=== PATIENT | male | born 1960 | race Caucasian/White ===

== ENCOUNTER 2024-05-14 12:02 | Inpatient (IN) ==
--- NOTE | 2024-05-14 12:11 | Emergency Department Note ---
Impression & Plan Chest pain, Abdominal pain, Non-ST elevation OR (NSTEMI), Fever, Hypomagnesemia, Elevated brain natriuretic peptide (BNP) level ED Provider Note HISTORY OF PRESENT ILLNESS: Patient is a 63-year-old male presenting with chest pain, shortness of breath and abdominal pain. Patient reports his chest pain started 3 to 4 days ago. He describes it as "a pressure-like sensation in my chest." He states the pain seemed to come and go throughout the last few days, but today it was significantly worse. He reports feeling short of breath and lightheaded today. He has had a headache at the base of his skull for the last few days. Denies any measured fevers at home, but was febrile with EMS and route and given 1000 mg of Tylenol. Patient is complaining of excruciating abdominal pain earlier today and given 50 mcg of IV fentanyl prehospital per medical command orders. Patient denies any DVT or PE history. Denies any history of cardiac stents. He is not on any anticoagulation or antiplatelet therapies. He is complaining of generalized abdominal pain. Denies any dysuria or hematuria. Denies any numbness or tingling or weakness in extremities. He denies any back pain. ROS: as above PHYSICAL EXAM: Constitutional: Patient appears in no acute distress. HENT: Head: Normocephalic and atraumatic. Eyes: EOMI, PERRL Mouth/Throat: Mucous membranes moist. Neck: Trachea midline. Neck supple. Cardiovascular: Tachycardic with regular rhythm. No murmurs, rubs or gallops. Intact distal pulses. Pulmonary/Chest: No respiratory distress. Breath sounds clear and equal bilaterally. No wheezes or rales. Abdominal: Abdomen soft, no tenderness, rebound or guarding. Diffuse tenderness to palpation Musculoskeletal: No edema, tenderness or deformity noted. Skin: Warm and dry. No rash, erythema, pallor or cyanosis Psychiatric: Appropriate mood and affect for situation. Neurological: Alert and keenly responsive. CN II-XII grossly intact, moving all extremities equally and fully. MDM: - Vitals signs showed hypertension and tachycardia. - History obtained via patient. History as above. - Chronic conditions affecting care: HTN; HLD; DM-2 - Differential diagnoses include, but are not limited to: Acute coronary syndrome; pulmonary embolism; dissection; tension pneumothorax; esophageal rupture; pneumonia - Order placed for continuous cardiac monitoring. At this time, monitor showed rate of 111 bpm with normal sinus rhythm, per my interpretation. - External medical records reviewed. - EKG interpreted by myself showed normal sinus rhythm. Rate tachycardic at 114 bpm. QT 368. No acute ischemic changes. Noted to have PVCs. - Laboratory workup interpreted by myself showed normal WBC; normal PT/INR; stable electrolytes; elevated lactic acid (2.1); elevated troponin (62.6); elevated BNP (317); normal lipase; normal procalcitonin - Viral respiratory panel negative - CTA chest negative for dissection. Noted to have small right pleural effusion and moderate to extensive coronary artery calcifications. Noted to have cirrhotic liver. - CTA abdomen/pelvis negative for dissection. Noted with 3 cm abdominal aortic aneurysm. Normal appendix - CXR negative for pneumonia, per my interpretation. - Discussion was had with pillowcase maker about patient's case and need for admission - Hospitalist consulted for admission - Patient admitted to [facility] service for further evaluation and management. ASSESSMENT AND PLAN: Diagnosis: chest pain; NSTEMI; abdominal pain; fever; hypomagnesemia; elevated BNP Plan: admit Past Med/Surg History Problem List (Updated 05/14/24 @ 14:40 by Bridgett Cotto PA-C) Psoriatic arthritis Diabetes mellitus, type II Anemia Alcoholic cirrhosis of liver Elevated troponin Elevated brain natriuretic peptide (BNP) level (Acute) Hypomagnesemia (Acute) Fever (Acute) Non-ST elevation OR (NSTEMI) (Acute) Abdominal pain (Acute) Chest pain (Acute) HTN (hypertension) (Chronic) RLS (restless legs syndrome) (Chronic) Diabetes (Chronic) Tachycardia (Chronic) Chronic pain (Chronic) H/O cervical spine surgery (Chronic) Weakness (Acute) Social History Smoking Status: Former smoker Feels Safe at Home: Yes Allergies Allergies Allergy/AdvReac Type Severity Reaction Status Date / Time No Known Allergies Allergy Unverified 05/14/24 13:38 Home Meds Home Medications Medication Instructions Recorded Confirmed aspirin 81 mg tablet,delayed 81 mg PO DAILY 05/14/24 05/14/24 release clonazepam 0.5 mg tablet 0.5 mg PO HS PRN Sleep 05/14/24 05/14/24 insulin degludec 200 unit/mL (3 30 unit subcut QAM 05/14/24 05/14/24 mL) subcutaneous pen (Tresiba FlexTouch U-200 insulin) lisinopril 40 mg tablet 40 mg PO DAILY 05/14/24 05/14/24 melatonin 5 mg tablet 5 mg PO HS PRN Sleep 05/14/24 05/14/24 metformin 1,000 mg tablet 1,000 mg PO BID 05/14/24 05/14/24 nortriptyline 50 mg capsule 150 mg PO HS 05/14/24 05/14/24 ropinirole 4 mg tablet 4 mg PO TID 05/14/24 05/14/24 sildenafil 100 mg tablet 100 mg PO DAILY PRN Sexual 05/14/24 05/14/24 [place] Results & Data (ED) Vital Signs Vital Signs - 24 hr 05/14/24 11:53 05/14/24 12:10 05/14/24 12:20 Temperature 37.1 C Temperature Source Oral Pulse Rate 112 H 111 H Pulse Rate from SpO2 Sensor Respiratory Rate 19 Respiratory Effort / Characteristics Non-Labored Spontaneous Respiratory Depth Normal Blood Pressure 118/92 Blood Pressure Mean 100 Pulse Oximetry 97 99 Oxygen Delivery Method Room Air Oxygen Flow Rate 4 Sepsis Recent Fever Within 48 Hours Yes Sepsis New/Unexplained Change in Mental Status No Sepsis Action Taken by Nursing No Action Required 05/14/24 12:45 05/14/24 12:46 05/14/24 13:03 Temperature Temperature Source Pulse Rate 108 H 111 H 110 H Pulse Rate from SpO2 Sensor 108 H 108 H Respiratory Rate 20 22 Respiratory Effort / Characteristics Respiratory Depth Blood Pressure 129/102 H 137/104 H Blood Pressure Mean 111 115 Pulse Oximetry 99 98 Oxygen Delivery Method Oxygen Flow Rate Sepsis Recent Fever Within 48 Hours Sepsis New/Unexplained Change in Mental Status Sepsis Action Taken by Nursing 05/14/24 14:39 Temperature Temperature Source Pulse Rate 108 H Pulse Rate from SpO2 Sensor 106 H Respiratory Rate Respiratory Effort / Characteristics Respiratory Depth Blood Pressure Blood Pressure Mean Pulse Oximetry 95 Oxygen Delivery Method Oxygen Flow Rate Sepsis Recent Fever Within 48 Hours Sepsis New/Unexplained Change in Mental Status Sepsis Action Taken by Nursing Laboratory Data 05/14/24 12:12 05/14/24 12:12 Lab Results 05/14/24 05/14/24 05/14/24 Range/Units 12:12 12:19 12:33 WBC 6.88 (4.8-10.8) K/ul RBC 3.79 L (4.70-6.10) M/uL Hgb 11.8 L (14.0-18.0) g/dl POC Hgb 12.9 L (14.0-18.0) g/dl Hct 37.2 L (42.0-52.0) % POC Hct 38 L (42-52) % MCV 98.2 (80.0-100.0) fL MCH 31.1 (25.0-34.0) pg MCHC 31.7 L (32.0-36.0) g/dL RDW Std Deviation 57.5 H (36.4-46.3) fL RDW Coeff of Doni 15.9 H (11.5-14.5) % Plt Count 191 (130-400) K/uL MPV 9.3 L (9.4-12.4) fL Immature Gran % (Auto) 0.9 % Neut % (Auto) 70.9 % Lymph % (Auto) 15.4 % Stevens % (Auto) 10.9 % Eos % (Auto) 1.2 % Baso % (Auto) 0.7 % Neut # (Auto) 4.88 (1.40-6.50) K/uL Lymph # (Auto) 1.06 L (1.20-3.40) K/uL Stevens # (Auto) 0.75 H (0.11-0.59) K/uL Eos # (Auto) 0.08 (0.00-0.50) K/uL Baso # (Auto) 0.05 (0.00-0.20) K/uL Immature Gran # (Auto) 0.06 (0.01-0.20) K/uL PT 12.0 (9.0-12.0) Seconds INR 1.1 (0.9-1.1) POC Sodium 140 (135-144) mmol/L Sodium 137 (136-145) mmol/L POC Potassium 4.3 (3.3-5.0) mmol/L Potassium 4.2 (3.5-5.1) mmol/L POC Chloride 105 (101-112) mmol/L Chloride 104 (98-107) mmol/L Carbon Dioxide 23 (21-32) mmol/L POC Total CO2 21 L (24-31) mmol/L Anion Gap 10 (3-11) POC Anion Gap 20.0 (16-25) mmol/L POC BUN 17 (7-18) mg/dl BUN 17 (6-23) mg/dl Creatinine 0.94 (0.6-1.4) mg/dl POC Creatinine 1.0 (0.6-1.3) mg/dl Est Cr Clr Drug Dosing 103.7 ml/min eGFR 92.23 BUN/Creatinine Ratio 18.1 (10-20) Glucose 208 H (70-99(Fasting)) mg/dl POC Glucose (other) 213 H (70-99) mg/dl Lactate 2.1 H* (0.4-2.0) mmol/L Calcium 9.3 (8.6-10.3) mg/dl POC Ioniz Calcium Laverne 1.11 L (1.12-1.32) mmol/l Magnesium 1.2 L (1.7-2.4) mg/dl Total Bilirubin 0.8 (0.2-1.0) mg/dl AST 31 (13-39) U/L ALT 27 (7-52) U/L Alkaline Phosphatase 103 (34-104) U/L Troponin I High Sens 62.6 H* (0-20) pg/ml B-Natriuretic Peptide 317 H (0-100) pg/ml Total Protein 7.7 (6.0-8.3) gm/dl Albumin 3.8 (3.4-5.0) gm/dl Globulin 3.9 (2.5-4.0) gm/dl Albumin/Globulin Ratio 1.0 (0.9-2) Lipase 16 (11-82) U/L Procalcitonin 0.21 (0-0.5) ng/ml Adenovirus (PCR) Not Detected (NotDetected) B. pertussis DNA (PCR) Not Detected (NotDetected) B.parapertussis DNA PCR Not Detected (NotDetected) C. pneumoniae DNA (PCR) Not Detected (NotDetected) Coronavirus OC43 (PCR) Not Detected (NotDetected) Coronavirus HKU1 (PCR) Not Detected (NotDetected) Coronavirus 229E (PCR) Not Detected (NotDetected) SARS-CoV-2 (PCR) Not Detected (NotDetected) Coronavirus NL63 (PCR) Not Detected (NotDetected) Human Metapneumovir PCR Not Detected (NotDetected) Influenza Type A (PCR) Not Detected (NotDetected) Influenza Type B (PCR) Not Detected (NotDetected) M. pneumoniae (PCR) Not Detected (NotDetected) Parainfluenza 1 (PCR) Not Detected (NotDetected) Parainfluenza 2 (PCR) Not Detected (NotDetected) Parainfluenza 3 (PCR) Not Detected (NotDetected) Parainfluenza 4 (PCR) Not Detected (NotDetected) RSV (PCR) Not Detected (NotDetected) Entero/Rhino (PCR) Not Detected (NotDetected) 05/14/24 Range/Units 14:39 WBC (4.8-10.8) K/ul RBC (4.70-6.10) M/uL Hgb (14.0-18.0) g/dl POC Hgb (14.0-18.0) g/dl Hct (42.0-52.0) % POC Hct (42-52) % MCV (80.0-100.0) fL MCH (25.0-34.0) pg MCHC (32.0-36.0) g/dL RDW Std Deviation (36.4-46.3) fL RDW Coeff of Doni (11.5-14.5) % Plt Count (130-400) K/uL MPV (9.4-12.4) fL Immature Gran % (Auto) % Neut % (Auto) % Lymph % (Auto) % Stevens % (Auto) % Eos % (Auto) % Baso % (Auto) % Neut # (Auto) (1.40-6.50) K/uL Lymph # (Auto) (1.20-3.40) K/uL Stevens # (Auto) (0.11-0.59) K/uL Eos # (Auto) (0.00-0.50) K/uL Baso # (Auto) (0.00-0.20) K/uL Immature Gran # (Auto) (0.01-0.20) K/uL PT (9.0-12.0) Seconds INR (0.9-1.1) POC Sodium (135-144) mmol/L Sodium (136-145) mmol/L POC Potassium (3.3-5.0) mmol/L Potassium (3.5-5.1) mmol/L POC Chloride (101-112) mmol/L Chloride (98-107) mmol/L Carbon Dioxide (21-32) mmol/L POC Total CO2 (24-31) mmol/L Anion Gap (3-11) POC Anion Gap (16-25) mmol/L POC BUN (7-18) mg/dl BUN (6-23) mg/dl Creatinine (0.6-1.4) mg/dl POC Creatinine (0.6-1.3) mg/dl Est Cr Clr Drug Dosing ml/min eGFR BUN/Creatinine Ratio (10-20) Glucose (70-99(Fasting)) mg/dl POC Glucose (other) (70-99) mg/dl Lactate 1.5 (0.4-2.0) mmol/L Calcium (8.6-10.3) mg/dl POC Ioniz Calcium Laverne (1.12-1.32) mmol/l Magnesium (1.7-2.4) mg/dl Total Bilirubin (0.2-1.0) mg/dl AST (13-39) U/L ALT (7-52) U/L Alkaline Phosphatase (34-104) U/L Troponin I High Sens (0-20) pg/ml B-Natriuretic Peptide (0-100) pg/ml Total Protein (6.0-8.3) gm/dl Albumin (3.4-5.0) gm/dl Globulin (2.5-4.0) gm/dl Albumin/Globulin Ratio (0.9-2) Lipase (11-82) U/L Procalcitonin (0-0.5) ng/ml Adenovirus (PCR) (NotDetected) B. pertussis DNA (PCR) (NotDetected) B.parapertussis DNA PCR (NotDetected) C. pneumoniae DNA (PCR) (NotDetected) Coronavirus OC43 (PCR) (NotDetected) Coronavirus HKU1 (PCR) (NotDetected) Coronavirus 229E (PCR) (NotDetected) SARS-CoV-2 (PCR) (NotDetected) Coronavirus NL63 (PCR) (NotDetected) Human Metapneumovir PCR (NotDetected) Influenza Type A (PCR) (NotDetected) Influenza Type B (PCR) (NotDetected) M. pneumoniae (PCR) (NotDetected) Parainfluenza 1 (PCR) (NotDetected) Parainfluenza 2 (PCR) (NotDetected) Parainfluenza 3 (PCR) (NotDetected) Parainfluenza 4 (PCR) (NotDetected) RSV (PCR) (NotDetected) Entero/Rhino (PCR) (NotDetected) Administered Medications Discontinued Medications Magnesium Sulfate/Dextrose (Magnesium Sulfate / D5w) 1 gm in 100 mls @ 100 mls/hr IV NOW STA Stop: 05/14/24 14:11 Last Admin: 05/14/24 13:16 Dose: 100 mls/hr Documented By: JORDYN Ioversol (Optiray 320 125ml) 120 ml IV ONCE ONE Stop: 05/14/24 12:39 Last Admin: 05/14/24 12:38 Dose: 120 ml Documented By: LEE Imaging Data Radiologist's Impression: Abdomen/Pelvis CTA 05/14/24 12:08 CT ANGIOGRAPHY OF THE ABDOMEN AND PELVIS CLINICAL HISTORY: Abdominal pain radiating into chest and back; hypoxia. COMPARISON STUDY: Right upper quadrant ultrasound June 05, 2015. TECHNIQUE: Helical axial images of the abdomen and pelvis were obtained during arterial phase following intravenous injection of 120 cc Optiray 320 IV. Sagittal and coronal reconstructions were viewed. Please note that the CTA of the chest will be reported separately. Automated exposure control was utilized for the study. A dose lowering technique was utilized adhering to the principles of ALARA. FINDINGS: A small right pleural effusion with right lower lobe airspace opacity is better depicted on the chest CT which will be reported separately. There is extensive plaque within the abdominal aorta. 3 cm infrarenal abdominal aortic aneurysm is present. The branch vessels are patent. There is moderate plaque within the branch vessels without significant stenosis. There is no dissection within the abdominal aorta. The liver is cirrhotic. A subtle 1.6 cm hypervascular central right hepatic lobe lesion on image 128 of 450 is present. No additional hepatic lesions are identified. A low-attenuation left adrenal nodule favors an adenoma. The spleen is mildly enlarged. There is no ascites. The right adrenal gland and pancreas are unremarkable. There is a suspected left lower pole renal cyst. There is no hydronephrosis. Mild bilateral renal cortical thinning is present. There are gallstones within the gallbladder without evidence for acute cholecystitis. An 8 mm hypodense nodule along the right hepatic lobe on image 119 is present. This is a possible significant. There is no evidence for a bowel obstruction. The appendix is normal. Loss of height of the superior endplate of L4 is likely chronic. No acute fractures are identified. There are mildly enlarged bilateral external iliac lymph nodes. Index left external iliac node on image 370 measures 2.4 x 1.3 cm. Fat- containing umbilical hernia. IMPRESSION: 1. No abdominal aortic dissection. 3 cm infrarenal abdominal aortic aneurysm. Extensive plaque within the abdominal aorta. Extensive plaque within the branch vessels without significant stenosis. 2. Cirrhotic liver. Subtle 1.6 cm hypervascular central right hepatic lobe focus. This could reflect a shunt however a hypervascular lesion could appear similar. Nonemergent liver protocol MRI is recommended. 3. Mild splenomegaly suggestive of portal hypertension. No ascites. 4. Cholelithiasis. No evidence for acute cholecystitis. 5. Normal appendix. No bowel obstruction. No bowel wall thickening. 6. Mildly enlarged bilateral external iliac lymph nodes which are nonspecific. Although not overtly suspicious, a follow-up CT in 6 months to ensure stability is recommended. ACT 112: Positive. There are findings on this exam that require communication between the performing entity and the patient following Patient Test Result Information Act ([place] Act 112) guidelines. Electronically signed by: Levi Gonzalez M.D. 05/14/2024 1:08 PM Chest CTA 05/14/24 12:08 CT angio chest dissec wo/w con CT DOSE: 2610.89 mGy.cm HISTORY: 63 years-old Male with chest pain; headache; abd pain. TECHNIQUE: Multiple CTA images of the chest were obtained with and without the intravenous administration of 120 ml Optiray. Coronal and sagittal MIPS were obtained from the axial data set and were submitted for review. All measurements were obtained according to NASCET criteria. A dose lowering technique was utilized adhering to the principles of ALARA. COMPARISON: CT abdomen and pelvis of same day, CT chest 04/26/2015 FINDINGS: CTA: Noncontrast scan demonstrates mild cardiomegaly with moderate to extensive coronary artery calcifications. No mediastinal or intramural hematoma. There is moderate atherosclerosis of the thoracic aorta without aneurysm or dissection. Imaged great vessels appear patent. The opacified pulmonary artery is unremarkable. CT CHEST: Borderline enlarged right hilar lymph nodes measure up to 10 mm. Small right pleural effusion with mild linear right basilar consolidation and groundglass densities. No pneumothorax. The left lung is predominantly clear. Cirrhotic liver. No acute upper abdominal abnormality. Findings subcentimeter hypodensity in the hepatic dome, too small to characterize. No acute fracture. Partially imaged cervical spinal fusion hardware. IMPRESSION: 1. Mild cardiomegaly with moderate to extensive coronary artery calcifications. No pulmonary embolus or acute aortic pathology. 2. Small right pleural effusion with bibasilar consolidation favoring atelectasis. Pneumonia considered less likely. 3. Borderline enlarged right hilar lymph nodes, likely reactive. 4. Cirrhotic liver. ACT 112: Negative or not required by law. The above report was generated using voice recognition software. It may contain grammatical, syntax or spelling errors. Electronically signed by: Raciel Carrillo M.D. 05/14/2024 1:05 PM Chest X-Ray 05/14/24 12:08 XR chest 1V portable HISTORY: 63 years-old Male Chest pain, nonspecific COMPARISON: CTA chest of same day TECHNIQUE: AP view of the chest FINDINGS: Cardiac silhouette is enlarged. Pulmonary vascular congestion. No pneumothorax. Small right pleural effusion with small right basilar opacities. Spondylotic spurring of the spine. Cervical spinal fusion hardware. IMPRESSION: 1. Cardiomegaly without overt pulmonary edema. 2. Small right pleural effusion with mild right basilar opacities suggestive of atelectasis versus pneumonia. ACT 112: Negative or not required by law. The above report was generated using voice recognition software. It may contain grammatical, syntax or spelling errors. Electronically signed by: Raciel Carrillo M.D. 05/14/2024 1:22 PM Discharge Plan Visit Data Chief Complaint: Abdominal Pain Stated Complaint: ABDOMINAL PAIN ED Provider: Cristin Singh Discharge Problem: Chest pain, Abdominal pain, Non-ST elevation OR (NSTEMI), Fever, Hypomagnesemia, Elevated brain natriuretic peptide (BNP) level Forms Stand Alone Forms: [employer] Prescriptions Prescriptions: No Action clonazepam 0.5 mg tablet 0.5 mg PO HS PRN (Reason: Sleep) aspirin 81 mg Tablet,Delayed Release (Dr/Ec) 81 mg PO DAILY Rx Instructions: Per patient, he takes this sporadically even though he is supposed to take it daily sildenafil 100 mg tablet 100 mg PO DAILY PRN (Reason: Sexual [place]) metformin 1,000 mg tablet 1,000 mg PO BID lisinopril 40 mg tablet 40 mg PO DAILY nortriptyline 50 mg capsule 150 mg PO HS ropinirole 4 mg tablet 4 mg PO TID melatonin 5 mg Tablet 5 mg PO HS PRN (Reason: Sleep) insulin degludec [Tresiba FlexTouch U-200] 200 unit/mL (3 mL) insulin pen 30 unit subcut QAM Referrals Referrals: Maggy Orozco DO [Outside Practitioners] -
[2024-05-14 12:31] LABS: Basophils # (auto) 0.05 K/uL (0.00-0.20); Basophils % (auto) 0.7 %; Eosinophils # (auto) 0.08 K/uL (0.00-0.50); Eosinophils % (auto) 1.2 %; Hematocrit (blood only) 37.2 % (42.0-52.0); Hemoglobin 11.8 g/dl (14.0-18.0); Immature Granulocytes # (auto) 0.06 K/uL (0.01-0.20); Immature Granulocytes % (auto) 0.9 %; Lymphocytes # (auto) 1.06 K/uL (1.20-3.40); Lymphocytes % (auto) 15.4 %; Mean Corpuscular Hemoglobin 31.1 pg (25.0-34.0); Mean Corpuscular Hgb Conc 31.7 g/dL (32.0-36.0); Mean Corpuscular Volume 98.2 fL (80.0-100.0); Mean Platelet Volume 9.3 fL (9.4-12.4); Monocytes # (auto) 0.75 K/uL (0.11-0.59); Monocytes % (auto) 10.9 %; Neutrophils # (auto) 4.88 K/uL (1.40-6.50); Neutrophils % (auto) 70.9 %; Platelet Count 191 K/uL (130-400); RDW Coefficient of Variation 15.9 % (11.5-14.5); RDW Standard Deviation 57.5 fL (36.4-46.3); Red Blood Count 3.79 M/uL (4.70-6.10); White Blood Count 6.88 K/ul (4.8-10.8)
[2024-05-14 12:31] LABS: iSTAT Hemoglobin 12.9 g/dl (14.0-18.0); iSTAT Ionized Calcium 1.11 mmol/l (1.12-1.32); iSTAT Potassium 4.3 mmol/L (3.3-5.0)
[2024-05-14] MEDS: OPTIRAY 320 125ml IV ONE (12:38)
[2024-05-14 12:43] LABS: Albumin Level 3.8 gm/dl (3.4-5.0); BUN Creatinine Ratio 18.1 (10-20); Bilirubin,Total 0.8 mg/dl (0.2-1.0); Calcium 9.3 mg/dl (8.6-10.3); Creatinine Clr Calc Pharmacy 103.7 ml/min; Globulin 3.9 gm/dl (2.5-4.0); Magnesium 1.2 mg/dl (1.7-2.4); Potassium 4.2 mmol/L (3.5-5.1); Total Protein 7.7 gm/dl (6.0-8.3)
[2024-05-14 12:52] LABS: INR 1.1 (0.9-1.1)
[2024-05-14 13:01] LABS: Troponin I High Sensitivity 62.6 pg/ml (0-20)
--- NOTE | 2024-05-14 13:07 | CT Scan Report ---
CT angio chest dissec wo/w con CT DOSE: 2610.89 mGy.cm HISTORY: 63 years-old Male with chest pain; headache; abd pain. TECHNIQUE: Multiple CTA images of the chest were obtained with and without the intravenous administra tion of 120 ml Optiray. Coronal and sagittal MIPS were obtained from the axial data set and were sub mitted for review. All measurements were obtained according to NASCET criteria. A dose lowering tech nique was utilized adhering to the principles of ALARA. COMPARISON: CT abdomen and pelvis of same day, CT chest 04/26/2015 FINDINGS: CTA: Noncontrast scan demonstrates mild cardiomegaly with moderate to extensive coronary artery calcificat ions. No mediastinal or intramural hematoma. There is moderate atherosclerosis of the thoracic aorta without aneurysm or dissection. Imaged great vessels appear patent. The opacified pulmonary artery is unremarkable. CT CHEST: Borderline enlarged right hilar lymph nodes measure up to 10 mm. Small right pleural effusion with mi ld linear right basilar consolidation and groundglass densities. No pneumothorax. The left lung is pr edominantly clear. Cirrhotic liver. No acute upper abdominal abnormality. Findings subcentimeter hypodensity in the hepatic dome, too small to characterize. No acute fracture. Partially imaged cervical spinal fusion hardware. IMPRESSION: 1. Mild cardiomegaly with moderate to extensive coronary artery calcifications. No pulmonary embolus or acute aortic pathology. 2. Small right pleural effusion with bibasilar consolidation favoring atelectasis. Pneumonia consider ed less likely. 3. Borderline enlarged right hilar lymph nodes, likely reactive. 4. Cirrhotic liver. ACT 112: Negative or not required by law. The above report was generated using voice recognition software. It may contain grammatical, syntax o r spelling errors. Electronically signed by: Raciel Carrillo M.D. 05/14/2024 1:05 PM
--- NOTE | 2024-05-14 13:10 | CT Scan Report ---
CT ANGIOGRAPHY OF THE ABDOMEN AND PELVIS CLINICAL HISTORY: Abdominal pain radiating into chest and back; hypoxia. COMPARISON STUDY: Right upper quadrant ultrasound June 05, 2015. TECHNIQUE: Helical axial images of the abdomen and pelvis were obtained during arterial phase followi ng intravenous injection of 120 cc Optiray 320 IV. Sagittal and coronal reconstructions were viewed. Please note that the CTA of the chest will be reported separately. Automated exposure control was uti lized for the study. A dose lowering technique was utilized adhering to the principles of ALARA. FINDINGS: A small right pleural effusion with right lower lobe airspace opacity is better depicted on the chest CT which will be reported separately. There is extensive plaque within the abdominal aorta . 3 cm infrarenal abdominal aortic aneurysm is present. The branch vessels are patent. There is moder ate plaque within the branch vessels without significant stenosis. There is no dissection within the abdominal aorta. The liver is cirrhotic. A subtle 1.6 cm hypervascular central right hepatic lobe les ion on image 128 of 450 is present. No additional hepatic lesions are identified. A low-attenuation l eft adrenal nodule favors an adenoma. The spleen is mildly enlarged. There is no ascites. The right a drenal gland and pancreas are unremarkable. There is a suspected left lower pole renal cyst. There is no hydronephrosis. Mild bilateral renal cortical thinning is present. There are gallstones within th e gallbladder without evidence for acute cholecystitis. An 8 mm hypodense nodule along the right hepa tic lobe on image 119 is present. This is a possible significant. There is no evidence for a bowel ob struction. The appendix is normal. Loss of height of the superior endplate of L4 is likely chronic. N o acute fractures are identified. There are mildly enlarged bilateral external iliac lymph nodes. Ind ex left external iliac node on image 370 measures 2.4 x 1.3 cm. Fat-containing umbilical hernia. IMPRESSION: 1. No abdominal aortic dissection. 3 cm infrarenal abdominal aortic aneurysm. Extensive plaque within the abdominal aorta. Extensive plaque within the branch vessels without significant stenosis. 2. Cirrhotic liver. Subtle 1.6 cm hypervascular central right hepatic lobe focus. This could reflect a shunt however a hypervascular lesion could appear similar. Nonemergent liver protocol MRI is recomm ended. 3. Mild splenomegaly suggestive of portal hypertension. No ascites. 4. Cholelithiasis. No evidence for acute cholecystitis. 5. Normal appendix. No bowel obstruction. No bowel wall thickening. 6. Mildly enlarged bilateral external iliac lymph nodes which are nonspecific. Although not overtly s uspicious, a follow-up CT in 6 months to ensure stability is recommended. ACT 112: Positive. There are findings on this exam that require communication between the performing entity and the patient following Patient Test Result Information Act ([place] Act 112) guidelines. Electronically signed by: Levi Gonzalez M.D. 05/14/2024 1:08 PM
[2024-05-14] MEDS: MAGNESIUM SULFATE / D5W 1 GM/100 ML BAG IV STA (13:16)
--- NOTE | 2024-05-14 13:23 | XRay Report ---
XR chest 1V portable HISTORY: 63 years-old Male Chest pain, nonspecific COMPARISON: CTA chest of same day TECHNIQUE: AP view of the chest FINDINGS: Cardiac silhouette is enlarged. Pulmonary vascular congestion. No pneumothorax. Small right pleural e ffusion with small right basilar opacities. Spondylotic spurring of the spine. Cervical spinal fusion hardware. IMPRESSION: 1. Cardiomegaly without overt pulmonary edema. 2. Small right pleural effusion with mild right basilar opacities suggestive of atelectasis versus pn eumonia. ACT 112: Negative or not required by law. The above report was generated using voice recognition software. It may contain grammatical, syntax o r spelling errors. Electronically signed by: Raciel Carrillo M.D. 05/14/2024 1:22 PM
[2024-05-14 13:51] LABS: Adenovirus PCR Not Detected (NotDetected); Bordetella parapertussis PCR Not Detected (NotDetected); Bordetella pertussis PCR Not Detected (NotDetected); Chlamydia pneumoniae PCR Not Detected (NotDetected); Coronavirus 229E PCR Not Detected (NotDetected); Coronavirus CoV-2 (COVID19)PCR Not Detected (NotDetected); Coronavirus HKU1 PCR Not Detected (NotDetected); Coronavirus NL63 PCR Not Detected (NotDetected); Coronavirus OC43PCR Not Detected (NotDetected); Human Metapneumovirus PCR Not Detected (NotDetected); Influenza A PCR Not Detected (NotDetected); Influenza B PCR Not Detected (NotDetected); Mycoplasma pneumoniae PCR Not Detected (NotDetected); Parainfluenza Virus 1 PCR Not Detected (NotDetected); Parainfluenza Virus 2 PCR Not Detected (NotDetected); Parainfluenza Virus 3 PCR Not Detected (NotDetected); Parainfluenza Virus 4 PCR Not Detected (NotDetected); Respiratory Syncytial VirusPCR Not Detected (NotDetected); Rhinovirus/Enterovirus PCR Not Detected (NotDetected)
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
[2024-05-14 15:14] LABS: Troponin I High Sensitivity 66.9 pg/ml (0-20)
--- NOTE | 2024-05-14 15:34 | Electrocardiogram Report ---
Test Reason : Blood Pressure : */* mmHG Vent. Rate : 114 BPM Atrial Rate : 114 BPM P-R Int : 154 ms QRS Dur : 106 ms QT Int : 368 ms P-R-T Axes : 51 -21 67 degrees QTcB Int : 507 ms Sinus tachycardia with frequent Premature ventricular complexes Non-specific intra-ventricular conduction delay Left atrial enlargement Abnormal ECG When compared with ECG of 27-Apr-2015 08:48, Premature ventricular complexes are now Present T wave inversion no longer evident in Lateral leads Confirmed by Cameron Alvarez ([id number]) on 05/14/2024 3:34:00 PM Referred By: Confirmed By: Cameron Alvarez
[2024-05-14] MEDS: SODIUM CHLORIDE 0.9% 1,000 ML IV ONE (15:43)
[2024-05-14] MEDS: MAGNESIUM SULFATE / D5W 1 GM/100 ML BAG IV SCH (15:44)
[2024-05-14] MEDS ORDERED: GLUCOSE 40% GEL 15 GM TUBE PO PRN (16:26)
[2024-05-14] MEDS ORDERED: GLUCOSE 10 TAB/TUBE PO PRN (16:26)
[2024-05-14] MEDS ORDERED: CARBOHYDRATES FOR HYPOGLYCEMIA PO PRN (16:26)
[2024-05-14] MEDS ORDERED: GLUCAGON FOR INJ 1 MG VIAL SQ PRN (16:26)
[2024-05-14] MEDS ORDERED: DEXTROSE 50% 50 ML SYRINGE IV PRN (16:26)
[2024-05-14 16:42] LABS: Ferritin 46.9 ng/ml (8-388)
[2024-05-14] MEDS: INSULIN ASPART PER UNIT CHARGE SC SCH (16:42)
[2024-05-14] MEDS: ASPIRIN 81 MG CHEW PO STA (16:43)
[2024-05-14 17:15] LABS: Folate (Folic Acid),Ser orPlas 11.3 ng/ml (>5.38)
[2024-05-14 17:15] LABS: Lyme Screen Rflx Confirmation Positive (Negative)
[2024-05-14] MEDS ORDERED: PROMETHAZINE 6.25 MG/50.25 ML BAG IV PRN (17:32)
[2024-05-14 17:49] LABS: Lyme Ab IgG 2nd Tier Confirm Positive (Negative)
[2024-05-14 17:50] LABS: Lyme Ab IgM 2nd Tier Confirm Negative (Negative)
[2024-05-14] MEDS ORDERED: LANTUS PER UNIT CHARGE SQ SCH (21:00)
[2024-05-14] MEDS: MELATONIN 3 MG TAB PO PRN (21:03)
[2024-05-14] MEDS: MAGNESIUM HYDROXIDE SUSP 30 ML UDC PO PRN (21:03)
[2024-05-14] MEDS: DOXYCYCLINE HYCLATE 100 MG in DEXTROSE 5% MINI-B 100 ML IV SCH (21:03)
[2024-05-14] MEDS: HEPARIN SOD 5,000 UNIT/0.5 ML VIAL SQ SCH (21:04)
[2024-05-14] MEDS: ACETAMINOPHEN 325 MG TAB PO PRN (21:04)
[2024-05-14] MEDS: clonazePAM 0.5 MG TAB PO PRN (21:04)
[2024-05-14] MEDS: ROSUVASTATIN CALCIUM 5 MG TAB PO SCH (21:05)
[2024-05-14] MEDS: LANTUS PER UNIT CHARGE SQ SCH (21:05)
[2024-05-14] MEDS: rOPINIRole HCL 2 MG TABLET PO SCH (21:05)
[2024-05-14] MEDS: NORTRIPTYLINE HCL 25 MG CAP PO SCH (21:05)
[2024-05-14] MEDS: SODIUM CHLORIDE 0.9% 1,000 ML IV SCH (22:25)
[2024-05-15 03:36] LABS: Appearance Urine Clear (Clear); Bacteria Urine Automated 2+ (None Seen); Bilirubin Urine Negative (Negative); Blood Urine Trace (Negative); Cast Urine Automated 0-2 /lpf (0-2); Color Urine Yellow; Epithelial Cell Urine Auto 0-2 /hpf (0-2); Glucose Urine UA Negative (Negative); Ketones Urine Negative (Negative); Leukocyte Esterase Urine 2+ (Negative); Nitrite Urine Positive (Negative); Protein Urine 1+ (Negative); RBC Urine Automated 0-2 /hpf (0-2); Urobilinogen Urine Negative (Negative); WBC Urine Automated >50 /hpf (0-5); pH Urine 5.5 (4.5-7.5)
[2024-05-15] MEDS: IPRATROPIUM BROMIDE NEB SOLN 0.02% 0.5MG/2.5ML VIAL INH STA (06:05)
[2024-05-15] MEDS: LEVALBUTEROL 1.25 MG/3 ML NEB NEB STA (06:05)
[2024-05-15 06:10] LABS: Base Excess VBG 0.3 mEq/L; HCO3 VBG 25 mmol/L; Oxygen Saturation VBG 71.6 %; PCO2 VBG 42 mmHg (38-50); PO2 VBG 44 mmHg; pH VBG 7.39 (7.36-7.41)
[2024-05-15] MEDS: NITROGLYCERIN SL 0.4 MG/TAB TAB SL STA (06:21)
[2024-05-15 06:22] LABS: Hematocrit (blood only) 38.2 % (42.0-52.0); Hemoglobin 12.1 g/dl (14.0-18.0); Mean Corpuscular Hemoglobin 31.5 pg (25.0-34.0); Mean Corpuscular Hgb Conc 31.7 g/dL (32.0-36.0); Mean Corpuscular Volume 99.5 fL (80.0-100.0); Mean Platelet Volume 9.6 fL (9.4-12.4); Platelet Count 225 K/uL (130-400); RDW Coefficient of Variation 15.9 % (11.5-14.5); RDW Standard Deviation 57.7 fL (36.4-46.3); Red Blood Count 3.84 M/uL (4.70-6.10); White Blood Count 6.57 K/ul (4.8-10.8)
[2024-05-15 06:34] LABS: Albumin Globulin Ratio 0.8 (0.9-2); Albumin Level 3.5 gm/dl (3.4-5.0); BUN Creatinine Ratio 16.3 (10-20); Bilirubin,Total 0.8 mg/dl (0.2-1.0); Calcium 9.1 mg/dl (8.6-10.3); Globulin 4.4 gm/dl (2.5-4.0); Potassium 4.3 mmol/L (3.5-5.1); Total Protein 7.9 gm/dl (6.0-8.3)
[2024-05-15 06:37] LABS: Chol HDL Ratio 4.8 (0-5); Magnesium 2.2 mg/dl (1.7-2.4)
[2024-05-15 06:43] LABS: Partial Thromboplastin Time 28 Seconds (21-31)
[2024-05-15 06:44] LABS: Troponin I High Sensitivity 68.7 pg/ml (0-20)
--- NOTE | 2024-05-15 06:46 | XRay Report ---
EXAM: XR chest 1V portable CLINICAL HISTORY: SOB WTW TECHNIQUE: X-ray of the chest AP portable view. COMPARISON: CT chest angio dated 04/26/2015 FINDINGS: Bilateral mid and lower zones reticulonodular densities seen. Cardiac size is enlarged. Prominent bilateral hilar vascular markings. No pleural effusion seen. No pneumothorax seen. Intact bony thorax. Status post cervical fixation. IMPRESSION: 1. Cardiomegaly with prominent bilateral hilar vascular markings and bilateral pulmonary reticulonodular densities could be due to pulmonary infection/pulmonary edema. 2. Clinical correlation is advised. 3. Progressive course compared to prior CT chest. [facility] ER was called at [phone] at 5:35 AM INSURANCE PROFESSIONAL, 05/15/2024 and Kendrick Bowman was informed regarding the presence of Important Medical Findings on this report. Electronically signed by Alhaji Frazier 05-15-2024 06:46 AM
[2024-05-15 07:03] LABS: Estimated Average Glucose 146 mg/dl; Hemoglobin A1C 6.7 % (4.5-5.6)
[2024-05-15] MEDS: FUROSEMIDE INJ 20 MG/2 ML VIAL IV ONE (07:14)
[2024-05-15] MEDS: ACETAMINOPHEN 1,000 MG/100 ML VIAL IV STA (07:16)
[2024-05-15] MEDS: ASPIRIN 81 MG ECTAB PO SCH (08:26)
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
[2024-05-15] MEDS: FUROSEMIDE 40 MG/4 ML VIAL IV ONE ×2 (09:26→15:17)
--- NOTE | 2024-05-15 11:22 | Hospitalist Progress Note ---
Date of Service May 15, 2024 Assessment & Plan (1) Acute heart failure with reduced ejection fraction (HFrEF, <= 40%): (2) Demand ischemia: (3) Acute Lyme disease: (4) Alcoholic cirrhosis of liver: (5) Diabetes mellitus type 2, insulin dependent: (6) HTN, goal below 130/80: Plan Patient with acute decompensated systolic heart failure ejection fraction 20% Febrile illness most likely due to Lyme disease Continue IV diuresis Start goal-directed medical therapy for heart failure Cardiology consultation noted, possible cardiac cath on Friday Transition to oral doxycycline for Lyme disease treatment and minimize fluid Continue to monitor glucose, continue basal and short acting insulin Admission and Anticipated Discharge Date Admission Date: May 14, 2024 Subjective Patient still feels pretty ill. Moderate shortness of breath. Chest pain is improved. Does give a history of high risk exposure for tick borne diseases Physical Exam Physical Exam: Constitutional: Alert, moderately ill in appearance, mild respiratory distress, obese HEENT: Mucous membranes moist. Lungs: Decreased breath sounds, diffuse Rales throughout, decreased at bases CV: S1-S2, regular, murmur Abdomen: Obese, firm, minimal tenderness Extremities: Thick lower extremity edema, venous stasis dermatitis Neuro: No focal deficits, generalized weakness Psych: Cooperative, normal mood Results & Data Results & Data Vital Signs (Past 12 Hours) Vital Signs Temp Pulse Pulse Resp BP Pulse Ox O2 Del Method 05/15/24 07:41 36.8 C 113 H 18 128/75 93 Nasal Cannula 05/15/24 07:33 115 H 05/15/24 06:37 118 H 22 Nasal Cannula 05/15/24 06:07 119 H 28 H 95 Nasal Cannula 05/15/24 03:33 36.5 C 106 H 18 112/72 96 Nasal Cannula 05/14/24 23:48 Nasal Cannula O2 Flow Rate 05/15/24 07:41 3 05/15/24 07:33 05/15/24 06:37 05/15/24 06:07 3 05/15/24 03:33 3 05/14/24 23:48 3 Diagnostic Findings Reviewed imaging, laboratory and diagnostic studies. Pertinent findings as below. Echocardiogram report reviewed, ejection fraction 20-25%, Hemoglobin 12.1 Electrolytes stable Creatinine 0.92 Hemoglobin A1c 6.7% Lactate 1.5 Troponins reviewed and flat Lyme screen positive, IgG positive
[2024-05-15] MEDS: METOPROLOL SUCC 25MG EXT REL TAB PO SCH (11:37)
[2024-05-15] MEDS: POTASSIUM CHLORIDE CRTAB 20 MEQ TABCR PO SCH (12:57)
[2024-05-15] MEDS: FUROSEMIDE 40 MG/4 ML VIAL IV SCH (12:58)
[2024-05-15] MEDS: DOXYCYCLINE HYCLATE 100 MG CAP PO SCH (22:00)
[2024-05-16 06:57] LABS: BUN Creatinine Ratio 21.4 (10-20); Calcium 9.2 mg/dl (8.6-10.3); Creatinine Clr Calc Pharmacy 83.1 ml/min; Magnesium 2.1 mg/dl (1.7-2.4); Potassium 4.4 mmol/L (3.5-5.1)
[2024-05-16] MEDS: SPIRONOLACTONE 12.5 MG TAB PO SCH (08:06)
[2024-05-16] MEDS: VALSARTAN 80 MG TAB PO SCH ×2 (08:07→08:19)
[2024-05-16] MEDS: METOPROLOL SUCC 25MG EXT REL TAB PO SCH (08:18)
[2024-05-16] MEDS: ACETAMINOPHEN 500 MG TAB PO PRN (09:13)
[2024-05-16] MEDS: POLYETHYLENE (MIRALAX) 17 GM PACK PO PRN (09:13)
--- NOTE | 2024-05-16 11:10 | Hospitalist Progress Note ---
Date of Service May 16, 2024 Assessment & Plan (1) Acute heart failure with reduced ejection fraction (HFrEF, <= 40%): (2) Demand ischemia: (3) UTI due to Klebsiella species: (4) Acute Lyme disease: (5) Alcoholic cirrhosis of liver: (6) Diabetes mellitus type 2, insulin dependent: (7) HTN, goal below 130/80: Plan Patient has responded well to diuresis. Blood pressure now running on the lower side IV Lasix this morning and then transition to oral Lasix tomorrow Decrease Metoprolol succinate to 25 mg daily Decrease valsartan to 40 mg daily Continue to monitor blood pressure Continue oral doxycycline for presumed Lyme disease Add Keflex for UTI, UTI may be the more acute infection. Patient's IgM Lyme is not detected, however may have missed window will complete a course of doxycycline for Lyme disease as well. Patient reports that he would really like to be stabilized and discharged home to follow-up with his outpatient providers and pursue outpatient cardiology evaluation and ischemic evaluation when he gets back home. Communicated patient's wishes with cardiology. Based on patient's EF he would be a candidate for LifeVest. Continue to work towards goal-directed medical therapy for CHF as patient's blood pressure will permit. Monitor electrolytes and renal function with diuresis Admission and Anticipated Discharge Date Admission Date: May 14, 2024 Subjective Patient reports feeling much better this morning compared to yesterday. Shortness of breath has significantly improved. Physical Exam Physical Exam: Constitutional: Alert HEENT: Mucous membranes moist. Lungs: Decreased breath sounds bilaterally, crackles at the bases, improved CV: S1-S2, regular Abdomen: Soft, nontender, nondistended Extremities: Trace to 1+ pretibial edema, significantly improved over yesterday Neuro: No focal deficits Musculoskeletal: Head always leaning to the right from previous cervical spine surgery Psych: Cooperative, normal mood Results & Data Results & Data Vital Signs (Past 12 Hours) Vital Signs Temp Pulse Pulse Resp BP Pulse Ox O2 Del Method 05/16/24 07:30 37.4 C 101 H 18 98/61 L 92 Room Air 05/16/24 07:13 99 H 05/16/24 03:16 37.0 C 97 H 24 106/72 92 Room Air 05/16/24 00:25 96 H 18 93 Room Air 05/16/24 00:22 93 Room Air 05/15/24 23:21 Room Air Diagnostic Findings Reviewed imaging, laboratory and diagnostic studies. Pertinent findings as below. Potassium 4.4 Creatinine 1.7 Glucoses reviewed Urinalysis reviewed Urine culture growing out Klebsiella
[2024-05-16] MEDS: cephALEXin 500 MG CAP PO SCH (12:48)
--- NOTE | 2024-05-16 14:02 | Cardiology Progress Note ---
Date of Service May 16, 2024 Assessment & Plan (1) Chest pain: (2) Elevated troponin: (3) Acute decompensated heart failure: (4) HTN, goal below 130/80: (5) Dyslipidemia, goal LDL below 70: Plan Complex 63-year-old male presenting with multiple complaints including chest and upper abdominal pain with activity. Patient with multiple cardiac risk factors including hypertension, dyslipidemia, type 2 diabetes mellitus, history of tobacco use, obesity, physical activity. EKG without acute change. High-sensitivity troponin mildly elevated and flat. Technically difficult TTE on May 15, 2024 revealed an LVEF 20 to 25%. Imaging this admission with significant coronary and thoracic aortic calcification, 3 cm infrarenal abdominal aortic aneurysm, cirrhotic liver. Volume overload has improved following IV diuresis. Recommendations * Continue aspirin, statin, evidence-based beta-darwin therapy, oral furosemide and spironolactone. * Hold ARB for now, RE: Hypotension. Change on Entresto as able, unless cost prohibitive. * Maintain telemetry * NPO after midnight tonight for diagnostic cardiac catheterization on Friday. * He is in agreement with the use of a external defibrillator on discharge * Will need close outpatient follow-up with his materials intern in [place] on discharge. Admission and Anticipated Discharge Date Admission Date: May 14, 2024 Supervising Physician Co-Signing Physician Notes I spent a total of 30 minutes on the date of service in preparation, delivery, and documentation of the care provided to this patient, excluding any time spent in the performance of separately billed services. I have personally performed a history and physical examination on the patient. I have reviewed the advance practitioner's documentation, and I agree with, and take responsibility for the plan of care. Subjective Patient seen and examined. Chart, medications, telemetry reviewed. Overall, feels much better. Breathing improved. No chest pain. No palpitations. May 15, 2024 TTE: Technically difficult study. LVEF 20 to 25%. RV not well-visualized. Mild mitral regurgitation. Telemetry: Sinus/sinus tachycardia, currently heart rates around 100 bpm. Review of Systems Review of Systems: Complete Review of Systems is as stated above, negative, or noncontributory Physical Exam Physical Exam: General: A&Ox3. NAD. Obese HENT: Normocephalic. Atraumatic. Eyes: PER. Conjunctiva pink, sclera clear. Neck: No JVD. Carotid bruits. Heart: Regular at 96 bpm. Soft systolic murmur at the LLSB. Lungs: Diminished. Decreased. No wheeze. Abdomen: +BS. Less firm. Nontender. Extremities: Stasis changes. Mild edema. Limited neurological examination is without focal deficits. Pulses: radial=2/4, posterior tibial=1/4. Results & Data Vital Signs (Past 12 Hours) Vital Signs Temp Pulse Pulse Resp BP Pulse Ox O2 Del Method 05/16/24 07:45 Room Air 05/16/24 07:30 37.4 C 101 H 18 98/61 L 92 Room Air 05/16/24 07:13 99 H 05/16/24 03:16 37.0 C 97 H 24 106/72 92 Room Air Laboratory Results Comprehensive Metabolic Panel 05/16/24 Range/Units 05:58 Sodium 138 (136-145) mmol/L Potassium 4.4 (3.5-5.1) mmol/L Chloride 102 (98-107) mmol/L Carbon Dioxide 27 (21-32) mmol/L BUN 25 H (6-23) mg/dl Creatinine 1.17 (0.6-1.4) mg/dl Glucose 209 H (70-99(Fasting)) mg/dl Calcium 9.2 (8.6-10.3) mg/dl Intake and Output 05/15/24 05/16/24 05/16/24 22:59 06:59 14:59 Intake Total 1560 / 1960 200 / 1960 Output Total 3650 / 3975 325 / 3975 Balance -2089 - Intake: IV 1000 / 1200 Sodium Chloride 0.9% 1,000 ml @ 1000 / 1000 80 mls/hr IV .[id number] [facility] Rx#: [id number] Oral 560 / 760 200 / 760 Output: Urine 325 / 325 Urine Amount (Catheter) 3650 / 3650 External 3650 / 3650 Other: # Unmeasured Voids 1 Weight 115.485 kg 115.6 kg Weight Measurement Method Standing Scale Standing Scale
[2024-05-16] MEDS ORDERED: Nursing to Pharmacy Communication SCH (20:45)
[2024-05-16] MEDS: LANTUS PER UNIT CHARGE SQ STA (21:17)
--- NOTE | 2024-05-17 07:28 | Pre Anesthesia Assessment ---
Date of Service May 17, 2024 Pre Sedation Assessment Vital Signs Temp Pulse Pulse Resp BP Pulse Ox O2 Del Method 05/17/24 07:10 98 H 14 111/74 95 Room Air 05/17/24 02:52 36.4 C L 88 18 123/80 95 Room Air 05/16/24 23:10 36.9 C 97 H 18 91/54 L 92 Room Air 05/16/24 22:25 Room Air 05/16/24 21:55 104 H 05/16/24 19:39 36.6 C 107 H 18 145/94 H 94 Room Air 05/16/24 17:31 36.8 C 05/16/24 17:23 37.9 C H 57 L 18 125/87 95 Room Air 05/16/24 15:13 98 H 05/16/24 07:45 Room Air 05/16/24 07:30 37.4 C 101 H 18 98/61 L 92 Room Air Cardiovascular + regular rate Respiratory normal respiratory effort, lungs clear to auscultation Pre-Sedation Airway Assessment Smoking Status: Former smoker Mallampati Class: III ASA: ASA3 NPO Status Date of Last Intake of Fluids: 05/16/24 Time of Last Intake of Fluids: 18:00 Date of Last Intake of Solid Food: 05/16/24 Time of Last Intake of Solid Foods: 18:00 Procedure Planning Contraindications for Sedation: none Current Medications Reviewed: Yes Notes The planned sedation has been discussed with the patient. Informed Consent was obtained. I have identified the patient, determined the appropriateness of sedation and have assessed the patient immediately prior to the procedure. All medicine(s) and interventions are by my order.
[2024-05-17 07:31] LABS: Hematocrit (blood only) 39.2 % (42.0-52.0); Hemoglobin 12.5 g/dl (14.0-18.0); Mean Corpuscular Hemoglobin 31.6 pg (25.0-34.0); Mean Corpuscular Hgb Conc 31.9 g/dL (32.0-36.0); Mean Platelet Volume 9.6 fL (9.4-12.4); Platelet Count 268 K/uL (130-400); RDW Coefficient of Variation 15.8 % (11.5-14.5); Red Blood Count 3.96 M/uL (4.70-6.10)
[2024-05-17 07:47] LABS: BUN Creatinine Ratio 27.5 (10-20); Calcium 9.6 mg/dl (8.6-10.3); Creatinine Clr Calc Pharmacy 73.9 ml/min; Potassium 4.6 mmol/L (3.5-5.1)
[2024-05-17] MEDS: MIDAZOLAM HCL 1 MG/ML 2ML VIAL ONE ×2 (08:08→08:22)
[2024-05-17] MEDS: HEPARIN (PORCINE) 1000 UNIT/ML 10 ML (CATH LAB USE ONLY) ONE (08:08)
[2024-05-17] MEDS: ASPIRIN 81 MG CHEW ONE (08:08)
[2024-05-17] MEDS: fentaNYL citrate PF 100 MCG/2 ML VIAL ONE ×2 (08:09→08:22)
[2024-05-17] MEDS: niCARdipine 2,000 MCG/20 ML SYR ONE (08:09)
[2024-05-17] MEDS: NITROGLYCERIN/D5W 100MCG/ML 20ML SYR ONE (08:10)
[2024-05-17] MEDS: OPTIRAY 350 ONE (08:23)
--- NOTE | 2024-05-17 08:34 | Cardiac Catheterization ---
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 Cardiac Status Clinical evaluation leading to the procedure CAD Presenation: No Sxs, No angina Anginal Classification: No Symptoms Heart Failure: NYHA Class: CCS III Cardiogenic Shock within 24 Hours: No Cardiac Arrest within 24 Hours: No Imaging Studies Past 6 Months: Yes Stress Studies Past 6 Months: No Coronary Anatomy Dominant: Co-Dominant Diagnostic Physicians Name: Carlos Quiles MD Closure Device Percutaneous Entry Location: Radial Closure Device: Radial Band Recommendations: Management Recommendatons Cardiac Cath Procedure Full Procedure Date May 17, 2024 Pre-Procedure Diagnosis Pre-Procedure Diagnosis: CHF and Cardiomyopathy AUC Score AUC Score: 7 Post-Procedure Diagnosis Post-Procedure Diagnosis: Mild CAD and Elevated Intracardiac Pressures Procedure(s) Performed Procedure(s) Performed: Coronary Angiography and Left Heart Cath Hard Tile Setter Apprentice Carlos Quiles MD Nutrition Services Associate(s) Martha Estimated Blood Loss Estimated Blood Loss: < 25 ml Medication(s) Medication(s): Fentanyl, Heparin, Lidocaine 1%, Nicardipine and Versed Summary of Findings Procedures: 1. Coronary angiography 2. Left heart catheterization 3. Moderate sedation Indication: Mr. Ortega is a pleasant 63-year-old gentleman with a history significant for type 2 diabetes, hypertension, dyslipidemia, who presented with acute heart failure with reduced EF and newly diagnosed cardiomyopathy. He was referred by [facility] cardiology for cardiac catheterization. Coronary angiography: 1. Separate ostium of LAD and circumflex. 2. Left anterior descending: Luminal irregularities noted within the mid LAD. Luminal irregularities in very large caliber D1. Large D2 without significant CAD. 3. Circumflex: Large-caliber and codominant vessel. Mid circumflex 10-20%. Large OM1, small OM 2, PL, and PDA without significant CAD. 4. Right coronary artery: RCA is large and codominant. Mid RCA 20%. PDA and PL branches without significant CAD. Left heart catheterization: 1. Left ventriculography was not performed. 2. No significant aortic stenosis. 3. Severely elevated LVEDP. LVEDP 39 mmHg. Moderate sedation: 1. Sedation start time: 7:49 AM 2. Sedation end time: 8:25 AM Procedural notes: 1. Procedure was performed via the right radial artery without known complication. 2. Patient has chronic back pain. Despite moderate sedation, he continued to have back pain throughout the procedure. 3. Several catheters were were used to try to selectively engage the LAD, including 6 [place] JL 3.5, 6 [place] AL-1, 6 [place] AL 2, and [place]. Circumflex was engaged with JL 3.5 diagnostic catheter. RCA was engaged with 6 [place] JR4 diagnostic catheter. Impression: 1. Nonischemic cardiomyopathy. 2. Mild nonobstructive CAD. 3. Severely elevated left-sided filling pressure. Plan: 1. Continue management as per [facility] cardiology group. 2. Optimize goal-directed medical therapy for heart failure with reduced EF. 3. Risk factor modification. Hemodynamics Rest Ao:: 108/83 Final Ao: 112/74 LV: 104/22/39 Recommendations Recommendations: Management Recommendatons Specimens Specimens: None Radiation Exposure (mGy) 2507 mGy. Fluoro time 15 min. Contrast (mls) 150 ml Procedural Complication(s) None Disposition PCU I attest to the content of the Intraoperative Record and any orders documented therein. Any exceptions are noted below. [facility] Card Cath Procedure Codes Cardiac Catheterization Procedure 1: Cardiovascular Cath Procedures: 15058 Coronaries and LHC (+/-LV) Moderate Sedation Procedure 1: Sedation/Anesthesia: 82863 Mod Sedation by the same physician;Init15 Min Child Age 5 & Up Procedure 2: Sedation/Anesthesia: 29542 Mod Sedation by the same physician; Ea [id number] Minutes Procedure 3: Sedation/Anesthesia: 42888 Mod Sedation by the same physician; Ea [id number] Minutes PG Care Time/CCT Total # of Minutes Spent Total Time Spent with Patient: Total time spent is greater than 50% in coordination of care (as documented) at patient's floor/unit and/or counseling patient:
--- NOTE | 2024-05-17 08:43 | Post Anesthesia Assessment ---
Date of Service May 17, 2024 Post Sedation Assessment Vital Signs Temp Pulse Pulse Resp BP Pulse Ox O2 Del Method 05/17/24 08:30 102 H 109/63 93 Room Air 05/17/24 07:10 98 H 14 111/74 95 Room Air 05/17/24 02:52 36.4 C L 88 18 123/80 95 Room Air 05/16/24 23:10 36.9 C 97 H 18 91/54 L 92 Room Air 05/16/24 22:25 Room Air 05/16/24 21:55 104 H 05/16/24 19:39 36.6 C 107 H 18 145/94 H 94 Room Air 05/16/24 17:31 36.8 C 05/16/24 17:23 37.9 C H 57 L 18 125/87 95 Room Air 05/16/24 15:13 98 H Recovery Score Activity: Moves 4 extremities Respiration: Deep Breath/Cough Circulation: +/-20% PreAnes Value Consciousness: Fully Awake Oxygen Saturation: > 92% On Room Air Discharge Sedation Level of Care: Fast Track Phase II Post Sedation Plan On clinical assessment, the patient appears to have tolerated the sedation without complications. Patient is recovering as anticipated. Patient will continue to be monitored by nursing and may be discharged when sedation discharge criteria are met per below protocol. Upon Completions of procedure up to 15 minutes continue every 5 minute vital signs and the P.A.R. score; then discharge to a Phase I or Fast Track to Phase II per the following guidelines: * Discharge Patient to appropriate Phase II area if PAR is 8 or greater or return to pre- procedure baseline. The post - procedure orders will be as directed. * If PAR score is less than 8 or not return to pre-procedure baseline then patient will follow Phase I monitoring till PAR is reached for Phase II. The Phase I may be done in procedure room or may call to secure a Phase I area. * If naloxone or flumazenil are used for reversal, hold in Phase I for continued monitoring from when last reversal dose was given for a minimum of 60 minutes or longer pending the nurse and/or physician discretion of patient condition before discharge to Phase II. Please call the Sedation Physician to re-evaluate and complete post-note for discharge to Phase II area. Do NOT discharge from procedure sedation or Phase 1 until post- sedation evaluation note is complete by procedure /sedation MD Sedation Discharge Instructions to be given to the patient at discharge to home.
[2024-05-17] MEDS: FUROSEMIDE 40 MG TAB PO SCH (09:37)
[2024-05-17] MEDS: LANTUS PER UNIT CHARGE SQ SCH (09:37)
--- NOTE | 2024-05-17 11:14 | Hospitalist Progress Note ---
Date of Service May 17, 2024 Assessment & Plan (1) Acute heart failure with reduced ejection fraction (HFrEF, <= 40%): (2) Demand ischemia: (3) UTI due to Klebsiella species: (4) Acute Lyme disease: (5) Nonischemic cardiomyopathy: (6) Non-occlusive coronary artery disease requiring drug therapy: (7) Alcoholic cirrhosis of liver: (8) Diabetes mellitus type 2, insulin dependent: (9) HTN, goal below 130/80: Plan Patient with acute on chronic systolic congestive heart failure due to nonischemic cardiomyopathy exacerbated by Klebsiella UTI and possibly acute Lyme. Patient status post catheterization, continue post cath care Continue current antibiotics for UTI and Lyme Medically maximized/goal-directed medical therapy for decreased ejection fraction Communication with cardiology, coordinating medical plan Patient to follow-up with his providers when he returns home, he reports already working on setting up follow-up appoint with cardiology Admission and Anticipated Discharge Date Admission Date: May 14, 2024 Subjective Patient seen postcardiac cath, feeling significantly improved. No chest pain or shortness of breath. Strength is improving. Physical Exam Physical Exam: Constitutional: Alert, nontoxic HEENT: Mucous membranes moist. Lungs: Decreased, few crackles, improved CV: S1-S2, regular Abdomen: Soft, nontender, nondistended Extremities: Significantly decreased edema lower extremity, skin loose and wrinkly Musculoskeletal: Chronic head-tilt to the right Neuro: No focal deficits Psych: Cooperative, normal mood Results & Data Results & Data Vital Signs (Past 12 Hours) Vital Signs Temp Pulse Pulse Resp BP BP Pulse Ox 05/17/24 10:58 36.5 C 103 H 16 103/69 94 05/17/24 10:07 102 H 05/17/24 10:07 05/17/24 09:58 36.9 C 101 H 15 103/70 93 05/17/24 09:28 37.1 C 99 H 17 109/73 91 05/17/24 08:58 36.6 C 101 H 15 111/75 92 05/17/24 08:45 100 H 103/47 L 93 05/17/24 08:30 102 H 109/63 93 05/17/24 07:10 98 H 14 111/74 95 05/17/24 02:52 36.4 C L 88 18 123/80 95 O2 Del Method 05/17/24 10:58 Room Air 05/17/24 10:07 05/17/24 10:07 Room Air 05/17/24 09:58 Room Air 05/17/24 09:28 Room Air 05/17/24 08:58 Room Air 05/17/24 08:45 Room Air 05/17/24 08:30 Room Air 05/17/24 07:10 Room Air 05/17/24 02:52 Room Air Diagnostic Findings Reviewed imaging, laboratory and diagnostic studies. Pertinent findings as below. Cardiac cath report reviewed, nonocclusive coronary artery disease, significantly increased left ventricular pressures Hemoglobin 12.5 Electrolytes stable Creatinine 1.3 Urine culture Klebsiella, pansensitive
--- NOTE | 2024-05-17 12:06 | Cardiology Progress Note ---
Date of Service May 17, 2024 Assessment & Plan (1) Chest pain: (2) Elevated troponin: (3) Acute decompensated heart failure: (4) HTN, goal below 130/80: (5) Dyslipidemia, goal LDL below 70: Plan Complex 63-year-old male presenting with multiple complaints including chest and upper abdominal pain with activity, multiple cardiac risk factors including hypertension, dyslipidemia, type 2 diabetes mellitus, history of tobacco use, obesity, physical activity. EKG without acute change. High-sensitivity troponin mildly elevated and flat. Technically difficult TTE on May 15, 2024 revealed an LVEF 20 to 25%. Imaging this admission with significant coronary and thoracic aortic calcification, 3 cm infrarenal abdominal aortic aneurysm, cirrhotic liver. May 17, 2024 cardiac catheterization with mild nonobstructive coronary artery disease and severely elevated LVEDP (39 mmHg). Recommendations * Furosemide 40 mg/day along with spironolactone 12.5 mg/day. * Increase metoprolol succinate to 25 mg twice a day * Continue ARB as blood pressure allows. Consider future use Entresto unless cost prohibitive. * Arrange external defibrillator prior to discharge * Continue aspirin and statin, risk factor and lifestyle modification * Close outpatient follow-up with [facility] in [place] after discharge. Admission and Anticipated Discharge Date Admission Date: May 14, 2024 Supervising Physician Co-Signing Physician Notes Hey history of attending attestation: Case reviewed with the advanced practitioner. I have personally performed a history and physical examination on the patient. I have reviewed the advanced practitioner's documentation on the date of service referenced in note, and I agree with, and take responsibility for the plan of care. Subjective: Patient without any subjective orthopnea. Exam: Right radial catheterization site, clean dry and intact, no erythema Extremities: chronic venous stasis changes without edema Impression/ Plan: Acute heart failure with reduced ejection fraction, nonischemic cardiomyopathy. Patient with past alcohol use but states he has not been drinking for 3 years. Since he is from [place] where he receives his care, is difficult to discern the acuity versus chronicity of the left ventricular systolic dysfunction. --Medications as described above. Post discharge follow-up with cardiology close to his home in [place]. I spent a total of 20 minutes coordinating, documenting, and providing care for this patient excluding time spent in the performance of separately billed services or time spent by another provider. Greg Abisai, DO Subjective Patient seen and examined. Chart, medications, telemetry reviewed. Status post April 16, 2024 coronary angiography revealing mild coronary artery disease with elevated intracardiac pressures. Feels better overall. Pain controlled. No new unilateral complaints, chest pain, palpitations, increased shortness of breath, orthopnea, PND, or edema. Review of Systems Review of Systems: Complete Review of Systems is as stated above, negative, or noncontributory Physical Exam Physical Exam: General: NAD. Neck: No JVD. Carotid bruits. Heart: Regular at 100 bpm. Soft systolic murmur at the LLSB. Lungs: Diminished. Decreased. No wheeze. Abdomen: +BS. No masses. Nontender. Extremities: Stasis changes. Mild edema. Limited neurological examination is without focal deficits. Results & Data Vital Signs (Past 12 Hours) Vital Signs Temp Pulse Pulse Resp BP BP Pulse Ox 05/17/24 12:00 36.8 C 97 H 19 96/61 L 95 05/17/24 10:58 36.5 C 103 H 16 103/69 94 05/17/24 10:07 102 H 05/17/24 10:07 05/17/24 09:58 36.9 C 101 H 15 103/70 93 05/17/24 09:28 37.1 C 99 H 17 109/73 91 05/17/24 08:58 36.6 C 101 H 15 111/75 92 05/17/24 08:45 100 H 103/47 L 93 05/17/24 08:30 102 H 109/63 93 05/17/24 07:10 98 H 14 111/74 95 05/17/24 02:52 36.4 C L 88 18 123/80 95 O2 Del Method 05/17/24 12:00 Room Air 05/17/24 10:58 Room Air 05/17/24 10:07 05/17/24 10:07 Room Air 05/17/24 09:58 Room Air 05/17/24 09:28 Room Air 05/17/24 08:58 Room Air 05/17/24 08:45 Room Air 05/17/24 08:30 Room Air 05/17/24 07:10 Room Air 05/17/24 02:52 Room Air Laboratory Results CBC 05/17/24 Range/Units 06:38 WBC 7.50 (4.8-10.8) K/ul RBC 3.96 L (4.70-6.10) M/uL Hgb 12.5 L (14.0-18.0) g/dl Hct 39.2 L (42.0-52.0) % Plt Count 268 (130-400) K/uL Comprehensive Metabolic Panel 05/17/24 Range/Units 06:38 Sodium 137 (136-145) mmol/L Potassium 4.6 (3.5-5.1) mmol/L Chloride 102 (98-107) mmol/L Carbon Dioxide 26 (21-32) mmol/L BUN 36 H (6-23) mg/dl Creatinine 1.31 (0.6-1.4) mg/dl Glucose 167 H (70-99(Fasting)) mg/dl Calcium 9.6 (8.6-10.3) mg/dl Intake and Output 05/16/24 05/17/24 05/17/24 22:59 06:59 14:59 Intake Total 480 / 770 290 / 770 Output Total 1000 / 1725 725 / 1725 250 / 250 Balance -520 / -955 -435 / -955 -250 / -250 Intake: Oral 480 / 770 290 / 770 Output: Urine 300 / 1025 725 / 1025 250 / 250 Urine Amount (Catheter) 700 / 700 External 700 / 700 Other: Other Intake Source NPO # Unmeasured Voids 1 Weight 114.5 kg 114.2 kg Weight Measurement Method Built in [facility] Built in [facility] Patient Weight 05/18/24 06:59 Weight 114.2 kg Diagnostic Findings May 17, 2024 Coronary Angiography ([facility], Dr. Carlos Quiles): 1. Separate ostium of LAD and circumflex. 2. Left anterior descending: Luminal irregularities noted within the mid LAD. Luminal irregularities in very large caliber D1. Large D2 without significant CAD. 3. Circumflex: Large-caliber and codominant vessel. Mid circumflex 10-20%. Large OM1, small OM 2, PL, and PDA without significant CAD. 4. Right coronary artery: RCA is large and codominant. Mid RCA 20%. PDA and PL branches without significant CAD. Left heart catheterization: 1. Left ventriculography was not performed. 2. No significant aortic stenosis. 3. Severely elevated LVEDP. LVEDP 39 mmHg. Telemetry: Sinus/sinus tachycardia, heart rates currently in the 90s.
[2024-05-17] MEDS: METOPROLOL SUCC 25MG EXT REL TAB PO SCH (20:59)
--- NOTE | 2024-05-17 21:55 | Electrocardiogram Report ---
Test Reason : Blood Pressure : */* mmHG Vent. Rate : 113 BPM Atrial Rate : 113 BPM P-R Int : 154 ms QRS Dur : 106 ms QT Int : 350 ms P-R-T Axes : 51 5 80 degrees QTcB Int : 480 ms Poor data quality, interpretation may be adversely affected Sinus tachycardia with occasional Premature ventricular complexes Premature atrial complexes Nonspecific ST abnormality Prolonged QT Abnormal ECG When compared with ECG of 14-May-2024 12:09, No significant change was found Confirmed by Carlos Quiles ([id number]) on 05/17/2024 9:55:30 PM Referred By: REFERRED SELF Confirmed By: Carlos Quiles
--- NOTE | 2024-05-17 21:56 | Electrocardiogram Report ---
Test Reason : Blood Pressure : */* mmHG Vent. Rate : 115 BPM Atrial Rate : 115 BPM P-R Int : 154 ms QRS Dur : 108 ms QT Int : 348 ms P-R-T Axes : 94 8 53 degrees QTcB Int : 481 ms Poor data quality, interpretation may be adversely affected Sinus tachycardia Cannot rule out Anterior infarct , age undetermined Prolonged QT Abnormal ECG When compared with ECG of 15-May-2024 05:33, Premature ventricular complexes are no longer Present Premature atrial complexes are no longer Present Confirmed by Carlos Quiles ([id number]) on 05/17/2024 9:55:57 PM Referred By: REFERRED SELF Confirmed By: Carlos Quiles
[2024-05-18] MEDS: LEVALBUTEROL 1.25 MG/3 ML NEB NEB STA (02:02)
[2024-05-18] MEDS: IPRATROPIUM BROMIDE NEB SOLN 0.02% 0.5MG/2.5ML VIAL INH STA (02:02)
[2024-05-18 02:04] LABS: Basophils # (auto) 0.11 K/uL (0.00-0.20); Basophils % (auto) 1.3 %; Eosinophils # (auto) 0.29 K/uL (0.00-0.50); Eosinophils % (auto) 3.5 %; Hematocrit (blood only) 39.8 % (42.0-52.0); Hemoglobin 12.7 g/dl (14.0-18.0); Immature Granulocytes # (auto) 0.05 K/uL (0.01-0.20); Immature Granulocytes % (auto) 0.6 %; Lymphocytes # (auto) 1.53 K/uL (1.20-3.40); Lymphocytes % (auto) 18.3 %; Mean Corpuscular Hemoglobin 31.6 pg (25.0-34.0); Mean Corpuscular Hgb Conc 31.9 g/dL (32.0-36.0); Mean Platelet Volume 9.4 fL (9.4-12.4); Monocytes # (auto) 1.08 K/uL (0.11-0.59); Monocytes % (auto) 12.9 %; Neutrophils # (auto) 5.32 K/uL (1.40-6.50); Neutrophils % (auto) 63.4 %; Platelet Count 277 K/uL (130-400); RDW Coefficient of Variation 15.9 % (11.5-14.5); RDW Standard Deviation 57.4 fL (36.4-46.3); Red Blood Count 4.02 M/uL (4.70-6.10); White Blood Count 8.38 K/ul (4.8-10.8)
[2024-05-18 02:17] LABS: Albumin Globulin Ratio 0.7 (0.9-2); Albumin Level 3.5 gm/dl (3.4-5.0); BUN Creatinine Ratio 26.8 (10-20); Bilirubin,Total 0.6 mg/dl (0.2-1.0); Calcium 9.6 mg/dl (8.6-10.3); Globulin 5.2 gm/dl (2.5-4.0); Magnesium 2.3 mg/dl (1.7-2.4); Potassium 4.8 mmol/L (3.5-5.1); Total Protein 8.7 gm/dl (6.0-8.3)
--- NOTE | 2024-05-18 02:21 | Communication Note ---
Date of Service: May 18, 2024
[2024-05-18 02:23] LABS: Base Excess VBG -1.1 mEq/L; HCO3 VBG 23 mmol/L; PCO2 VBG 34 mmHg (38-50); PO2 VBG 57 mmHg; pH VBG 7.43 (7.36-7.41)
[2024-05-18] MEDS: ALBUMIN 25% 12.5 GM/50 ML VIAL IV ONE (02:38)
--- NOTE | 2024-05-18 03:11 | XRay Report ---
EXAM: XR chest 1V portable CLINICAL HISTORY: TACHYPNE[facility] BEST POSSIBLE IMAGES OBTAINED WTW TECHNIQUE: X-ray image of the chest is obtained in AP portable projection. COMPARISON: 05/15/2024 FINDINGS: The patient is slightly rotated. Pulmonary Parenchyma: No evidence of consolidation, collapse, or focal opacities. No pulmonary nodules are identified. No evidence of pleural effusion or pleural thickening. Mild interval reduction in the coarse and prominent bilateral wilber-hilar vascular markings, may be due to variable inspiration. No pneumothorax seen. Heart and Mediastinum: Heart size appears a bit magnified due to portable projection. No mediastinal widening or masses. Curvilinear calcified plaque noted in the aortic knuckle. Bony Thorax: Status post cervical fixation. Bony thorax appears intact without fractures or deformities. Soft Tissues: Soft tissues overlying the chest wall are unremarkable. IMPRESSION: 1. No acute cardiopulmonary abnormalities are identified. 2. Mild interval reduction in the coarse and prominent bilateral wilber-hilar vascular markings and hilar congestion, may be due to variable inspiration/resolving pulmonary edema. Advise clinical correlation and follow-up. Electronically signed by Alhaji Frazier 05-18-2024 03:11 AM
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
--- NOTE | 2024-05-18 12:27 | Cardiology Progress Note ---
Date of Service May 18, 2024 Assessment & Plan (1) Chest pain: (2) Elevated troponin: (3) Acute decompensated heart failure: (4) HTN, goal below 130/80: (5) Dyslipidemia, goal LDL below 70: Plan 63-year-old male presenting with multiple complaints including chest and upper abdominal pain with activity, multiple cardiac risk factors including hypertension, dyslipidemia, type 2 diabetes mellitus, history of tobacco use, obesity, physical activity. EKG without acute change. High-sensitivity troponin mildly elevated and flat. Technically difficult TTE on May 15, 2024 revealed an LVEF 20 to 25%. Imaging this admission with significant coronary and thoracic aortic calcification, 3 cm infrarenal abdominal aortic aneurysm, cirrhotic liver. May 17, 2024 cardiac catheterization with mild nonobstructive coronary artery disease and severely elevated LVEDP (39 mmHg) - nonischemic cardiomyopathy. Recommendations * Continue the current cardiac medication regimen as presently prescribed. * Order form for an external defibrillator completed, banking representative contacted. * Patient advised to schedule an appointment with his Juvenile Officer in [place] soon after discharge, for hospital discharge follow-up, titration of guideline directed medical therapy. Please contact with any questions or concerns. Admission and Anticipated Discharge Date Admission Date: May 14, 2024 Supervising Physician Co-Signing Physician Notes Hey history of attending attestation: Case reviewed with the advanced practitioner. I have personally performed a history and physical examination on the patient. I have reviewed the advanced practitioner's documentation on the date of service referenced in note, and I agree with, and take responsibility for the plan of care. Greg Barone, DO Subjective Patient seen and examined. Chart, medications, telemetry reviewed. Cousin at bedside. No complaints. Denies chest pain, palpitations, shortness of breath, orthopnea, PND, headache or unilateral complaint. Telemetry: Sinus in the 80's and 90's Review of Systems Review of Systems: Complete Review of Systems is as stated above, negative, or noncontributory Physical Exam Physical Exam: General: NAD. Neck: No JVD. Heart: Regular at 80 bpm. Soft systolic murmur at the LLSB. Lungs: Clear Abdomen: +BS. No masses. Nontender. Extremities: Stasis changes. No edema. Limited neurological examination is without focal deficits. Results & Data Vital Signs (Past 12 Hours) Vital Signs Temp Pulse Resp BP Pulse Ox O2 Del Method 05/18/24 11:05 36.9 C 68 19 101/67 92 Room Air 05/18/24 08:23 Room Air 05/18/24 07:20 36.7 C 95 H 20 105/71 94 Room Air 05/18/24 03:04 36.5 C 95 H 20 109/67 94 Room Air 05/18/24 02:07 96 H 24 94 Room Air 05/18/24 01:32 28 H 143/81 H 94 Room Air Laboratory Results Cardiac Enzymes 05/18/24 Range/Units 01:43 AST 30 (13-39) U/L CBC 05/18/24 Range/Units 01:43 WBC 8.38 (4.8-10.8) K/ul RBC 4.02 L (4.70-6.10) M/uL Hgb 12.7 L (14.0-18.0) g/dl Hct 39.8 L (42.0-52.0) % Plt Count 277 (130-400) K/uL Neut # (Auto) 5.32 (1.40-6.50) K/uL Lymph # (Auto) 1.53 (1.20-3.40) K/uL [place] # (Auto) 1.08 H (0.11-0.59) K/uL Eos # (Auto) 0.29 (0.00-0.50) K/uL Baso # (Auto) 0.11 (0.00-0.20) K/uL Comprehensive Metabolic Panel 05/18/24 Range/Units 01:43 Sodium 132 L (136-145) mmol/L Potassium 4.8 (3.5-5.1) mmol/L Chloride 100 (98-107) mmol/L Carbon Dioxide 22 (21-32) mmol/L BUN 37 H (6-23) mg/dl Creatinine 1.38 (0.6-1.4) mg/dl Glucose 148 H (70-99(Fasting)) mg/dl Calcium 9.6 (8.6-10.3) mg/dl AST 30 (13-39) U/L ALT 21 (7-52) U/L Alkaline Phosphatase 128 H (34-104) U/L Total Protein 8.7 H (6.0-8.3) gm/dl Albumin 3.5 (3.4-5.0) gm/dl Intake and Output 05/17/24 05/18/24 05/18/24 22:59 06:59 14:59 Intake Total 940 / 1090 150 / 1090 Output Total 800 / 1400 350 / 1400 100 / 100 Balance 140 / -310 -200 / -310 -100 / -100 Intake: IV 50 / 50 Albumin 25% 12.5 gm In 50 ml @ 50 / 50 50 mls/hr IV ONE ONE Rx#: [id number] Oral 940 / 1040 100 / 1040 Output: Urine 800 / 1400 350 / 1400 100 / 100 Other: # Unmeasured Voids 1 Weight 114.2 kg Weight Measurement Method Built in [facility]
--- NOTE | 2024-05-18 15:43 | Hospitalist Progress Note ---
Date of Service May 18, 2024 Assessment & Plan (1) Acute heart failure with reduced ejection fraction (HFrEF, <= 40%): (2) Demand ischemia: (3) UTI due to Klebsiella species: (4) Acute Lyme disease: (5) Nonischemic cardiomyopathy: (6) Non-occlusive coronary artery disease requiring drug therapy: (7) Alcoholic cirrhosis of liver: (8) Diabetes mellitus type 2, insulin dependent: (9) HTN, goal below 130/80: (10) Ambulatory dysfunction: (11) Left knee pain: Plan Initial plan for today was for patient to be discharged after he was fitted for his LifeVest LifeVest at bedside Patient now with complaints of acute left knee pain possible strain during care unable to safely ambulate Therapy evaluations Continue medications as planned for discharge Continue antibiotics Trial of scheduled Tylenol and as needed oxycodone for his knee pain. May need rehab placement if unable to safely ambulate within the next 24 hours. Admission and Anticipated Discharge Date Admission Date: May 14, 2024 Subjective Patient this morning was ready and eager to get home. Was confident that once he got out of bed he would be able to ambulate. However this afternoon as they were getting patient up to get ready to be discharged and required 2 people to assist standing. He is starting now to complain of some left knee pain and feels as though he would be unsafe to travel back to his home state [facility]. Physical Exam Physical Exam: Constitutional: Alert, nontoxic, no acute distress, morbidly obese HEENT: Mucous membranes moist. Lungs: Decreased breath sounds, few crackles at bases CV: S1-S2, regular Abdomen: Soft, nontender, nondistended Extremities: Lower extremity edema significantly improved Musculoskeletal: Head chronically tilted to the right and at baseline, tenderness to palpation left knee, no edema, no erythema Neuro: No focal deficits Psych: Cooperative, normal mood Results & Data Results & Data Vital Signs (Past 12 Hours) Vital Signs Temp Pulse Resp BP Pulse Ox O2 Del Method 05/18/24 11:05 36.9 C 68 19 101/67 92 Room Air 05/18/24 08:23 Room Air 05/18/24 07:20 36.7 C 95 H 20 105/71 94 Room Air Diagnostic Findings Reviewed imaging, laboratory and diagnostic studies. Pertinent findings as below. Hemoglobin 12.7 WBCs 8.3 Potassium 4.8 Creatinine 1.38 Glucose 226
[2024-05-18] MEDS: ACETAMINOPHEN 500 MG TAB PO SCH (16:13)
--- NOTE | 2024-05-18 22:01 | Communication Note ---
Date of Service: May 18, 2024 Overnight issues 05/18, 10PM Patient SBP 80s No other complaints but some SOB as per RN. Chest x-ray as per manipulation atelectasis Serum potassium 5.2 AP Hypotension hyperkalemia IV albumin Hold ARB and spironolactone for now 05/19 0030 Patient later noted to be confused as per RN. SOB and wheezing as per RN. Complaining of leg pain. Patient denies SOB symptoms on direct questioning by undersigned. Leg pain might be from RLS as per patient. Patient already on ropinirole PPE Oriented, obese, slightly anxious No respiratory distress Decreased breath sounds Bilateral LE swelling AP Leg pain rule out DVT LE venous Dopplers 0315 SBP 80s as per RN. Patient still confused. Patient noted refusing lab work and interventions. Patient called the police and demanded to speak to MD. Patient seen at bedside. Patient denies asking to talk to MD. Demanded that he be left alone. Delirium Hold ropinirole and Klonopin for now until mentation back to baseline One-to-one nursing as needed
[2024-05-18] MEDS: METOPROLOL SUCC 25MG EXT REL TAB PO SCH (22:10)
[2024-05-18] MEDS: ALBUMIN 25% 25 GM/100 ML VIAL IV ONE (22:31)
[2024-05-18 23:38] LABS: BUN Creatinine Ratio 27.4 (10-20); Calcium 9.6 mg/dl (8.6-10.3); Creatinine Clr Calc Pharmacy 71.6 ml/min; Potassium 5.2 mmol/L (3.5-5.1)
[2024-05-18 23:45] LABS: Babesia microti DNA Not Detected (Not Detected)
[2024-05-18 23:53] LABS: Thyroid Stimulating Hormone 2.538 uIu/ml (0.300-4.500)
[2024-05-18 23:57] LABS: Partial Thromboplastin Ratio 1.1; Partial Thromboplastin Time 29 Seconds (21-31)
[2024-05-19] MEDS: IPRATROPIUM BROMIDE NEB SOLN 0.02% 0.5MG/2.5ML VIAL INH STA (01:15)
[2024-05-19] MEDS: LEVALBUTEROL 1.25 MG/3 ML NEB NEB STA (01:15)
[2024-05-19] MEDS: tiZANidine HCL 4 MG TABLET PO STA (01:43)
[2024-05-19] MEDS: ALBUMIN 25% 12.5 GM/50 ML VIAL IV ONE (05:28)
[2024-05-19] MEDS: oxyCODONE HCL IR 5 MG TAB (IMMEDIATE RELEASE) PO PRN (07:58)
[2024-05-19 08:41] LABS: Basophils # (auto) 0.09 K/uL (0.00-0.20); Basophils % (auto) 1.1 %; Eosinophils # (auto) 0.19 K/uL (0.00-0.50); Eosinophils % (auto) 2.4 %; Hematocrit (blood only) 38.4 % (42.0-52.0); Hemoglobin 12.3 g/dl (14.0-18.0); Immature Granulocytes # (auto) 0.04 K/uL (0.01-0.20); Immature Granulocytes % (auto) 0.5 %; Lymphocytes # (auto) 1.04 K/uL (1.20-3.40); Lymphocytes % (auto) 13.2 %; Mean Corpuscular Hemoglobin 31.7 pg (25.0-34.0); Mean Platelet Volume 9.7 fL (9.4-12.4); Monocytes # (auto) 1.09 K/uL (0.11-0.59); Monocytes % (auto) 13.9 %; Neutrophils % (auto) 68.9 %; Platelet Count 275 K/uL (130-400); RDW Coefficient of Variation 15.6 % (11.5-14.5); RDW Standard Deviation 57.1 fL (36.4-46.3); Red Blood Count 3.88 M/uL (4.70-6.10); White Blood Count 7.85 K/ul (4.8-10.8)
[2024-05-19 08:58] LABS: Albumin Globulin Ratio 0.7 (0.9-2); Albumin Level 3.8 gm/dl (3.4-5.0); BUN Creatinine Ratio 28.7 (10-20); Bilirubin,Total 0.8 mg/dl (0.2-1.0); Calcium 9.8 mg/dl (8.6-10.3); Creatinine Clr Calc Pharmacy 71.9 ml/min; Globulin 5.1 gm/dl (2.5-4.0); Magnesium 2.4 mg/dl (1.7-2.4); Potassium 5.2 mmol/L (3.5-5.1); Total Protein 8.9 gm/dl (6.0-8.3)
--- NOTE | 2024-05-19 09:34 | Cardiology Progress Note ---
Date of Service May 19, 2024 Assessment & Plan (1) Chest pain: (2) Elevated troponin: (3) Acute decompensated heart failure: (4) HTN, goal below 130/80: (5) Dyslipidemia, goal LDL below 70: Plan 63-year-old male admitted with multiple complaints including chest and upper abdominal pain with activity, multiple cardiac risk factors (hypertension, dyslipidemia, type 2 diabetes mellitus, history of tobacco use, obesity, physical inactivity). EKG without acute change. High-sensitivity troponin mildly elevated and flat. Technically difficult TTE on May 15, 2024 revealed an LVEF 20 to 25%. Imaging this admission with significant coronary and thoracic aortic calcification, 3 cm infrarenal abdominal aortic aneurysm, cirrhotic liver. May 17, 2024 cardiac catheterization with mild nonobstructive coronary artery disease and severely elevated LVEDP (39 mmHg) - nonischemic cardiomyopathy. Volume status: Normovolemic Borderline low blood pressures Mild hyperkalemia (5.2 mmol/L) Recommendations * Hold spironolactone for now, reducing to 12.5 mg only on , resuming on 05/21/2024 * Decrease Valsartan to 20 mg/day due to borderline blood pressures. * Increase metoprolol succinate from 37.5 mg BID to 50 mg BID * Patient fitted for a external defibrillator (Zoll) on 05/18/2024. * Patient advised to schedule an appointment with his Linux Security Administrator in [place] soon after discharge Admission and Anticipated Discharge Date Admission Date: May 14, 2024 Supervising Physician Co-Signing Physician Notes Hey history of attending attestation: Case reviewed with the advanced practitioner. I have personally performed a history and physical examination on the patient. I have reviewed the advanced practitioner's documentation on the date of service referenced in note, and I agree with, and take responsibility for the plan of care. Case discussed with Dr Kauffman of the hospitalist service for the purpose of coordination of care. Greg Barone, Subjective Patient seen and examined. Chart, medications, telemetry reviewed. Overnight event noted. No complaints this AM. Denies shortness of breath, chest pain, palpitations, orthopnea, PND, peripheral edema, headache or unilateral complaint. Telemetry: Sinus/sinus tachycardia, heart rates in the 90's to low 100's. Review of Systems Review of Systems: Complete Review of Systems is as stated above, negative, or noncontributory Physical Exam Physical Exam: General: A&Ox3. NAD. Neck: No JVD. Heart: Regular at 100 bpm. Soft systolic murmur at the LLSB. Lungs: Clear Abdomen: +BS. No masses. Nontender. Extremities: Stasis changes. No edema. Limited neurological examination is without focal deficits. Results & Data Vital Signs (Past 12 Hours) Vital Signs Temp Pulse Pulse Resp BP BP Pulse Ox 05/19/24 08:26 93 H 05/19/24 07:45 36.9 C 103 H 20 112/69 92 05/19/24 07:32 05/19/24 03:03 36.6 C 90 18 88/49 L 92 05/19/24 01:15 104 H 18 92 05/19/24 00:29 26 H 05/19/24 00:10 36.8 C 107 H 22 112/73 94 05/18/24 23:26 05/18/24 21:48 93 H O2 Del Method 05/19/24 08:26 05/19/24 07:45 Room Air 05/19/24 07:32 Room Air 05/19/24 03:03 Room Air 05/19/24 01:15 Room Air 05/19/24 00:29 05/19/24 00:10 Room Air 05/18/24 23:26 Room Air 05/18/24 21:48 Laboratory Results Cardiac Enzymes 05/19/24 Range/Units 08:12 AST 29 (13-39) U/L Coagulation 05/18/24 Range/Units 22:59 APTT 29 (21-31) Seconds CBC 05/19/24 Range/Units 08:12 WBC 7.85 (4.8-10.8) K/ul RBC 3.88 L (4.70-6.10) M/uL Hgb 12.3 L (14.0-18.0) g/dl Hct 38.4 L (42.0-52.0) % Plt Count 275 (130-400) K/uL Neut # (Auto) 5.40 (1.40-6.50) K/uL Lymph # (Auto) 1.04 L (1.20-3.40) K/uL [place] # (Auto) 1.09 H (0.11-0.59) K/uL Eos # (Auto) 0.19 (0.00-0.50) K/uL Baso # (Auto) 0.09 (0.00-0.20) K/uL Comprehensive Metabolic Panel 05/18/24 05/19/24 Range/Units 22:59 08:12 Sodium 134 L 138 (136-145) mmol/L Potassium 5.2 H 5.2 H (3.5-5.1) mmol/L Chloride 103 105 (98-107) mmol/L Carbon Dioxide 22 22 (21-32) mmol/L BUN 37 H 39 H (6-23) mg/dl Creatinine 1.35 1.36 (0.6-1.4) mg/dl Glucose 150 H 180 H (70-99(Fasting)) mg/dl Calcium 9.6 9.8 (8.6-10.3) mg/dl AST 29 (13-39) U/L ALT 20 (7-52) U/L Alkaline Phosphatase 127 H (34-104) U/L Total Protein 8.9 H (6.0-8.3) gm/dl Albumin 3.8 (3.4-5.0) gm/dl Intake and Output 05/18/24 05/19/24 05/19/24 22:59 06:59 14:59 Intake Total 100 Balance Intake: IV 100 / 100 Albumin 25% 25 gm In 100 ml @ 100 / 100 50 mls/hr IV ONE ONE Rx#: [id number] Other 0 / 0 Other: # Unmeasured Voids 2 Weight 116.7 kg Weight Measurement Method Built in [facility]
--- NOTE | 2024-05-19 10:35 | Ultrasound Report ---
BILATERAL LOWER EXTREMITY VENOUS DOPPLER CLINICAL HISTORY: Bilateral leg pain. COMPARISON STUDY: Bilateral lower extremity venous Doppler ultrasound April 25, 2015. TECHNIQUE: Sonography of the deep venous system of the bilateral lower extremities was performed. Co mpression and augmentation were evaluated. FINDINGS: The bilateral common femoral, superficial femoral and popliteal veins were compressible. A ugmentation was normal. Flow was shown within the deep calf vessels. IMPRESSION: No evidence of deep venous thrombus within the bilateral lower extremities. ACT 112: Negative or not required by law. Electronically signed by: Levi Gonzalez M.D. 05/19/2024 10:34 AM
--- NOTE | 2024-05-19 11:48 | Hospitalist Progress Note ---
Date of Service May 19, 2024 Assessment & Plan (1) Acute heart failure with reduced ejection fraction (HFrEF, <= 40%): (2) Demand ischemia: (3) UTI due to Klebsiella species: (4) Acute Lyme disease: (5) Nonischemic cardiomyopathy: (6) Non-occlusive coronary artery disease requiring drug therapy: (7) Alcoholic cirrhosis of liver: (8) Diabetes mellitus type 2, insulin dependent: (9) HTN, goal below 130/80: (10) Ambulatory dysfunction: (11) Left knee pain: (12) Acute hyperactive delirium due to another medical condition: Plan Patient overnight with some acute delirium most likely due to his general medical condition, hospital delirium, change in medications. Patient now also having some episodes of hypotension, this is most likely due to multiple new medications introduced this hospitalization Communication with cardiology team, holding ARB and diuretic today Beta-darwin dose adjusted Therapies Patient has is now extremely deconditioned due to his medical condition. Anticipate most likely will need short-term rehab prior to being discharged to home Continue antibiotics for UTI and presumed Lyme infection Continue to monitor glucose with insulin coverage Admission and Anticipated Discharge Date Admission Date: May 14, 2024 Subjective Events of last evening reviewed. Patient acutely delirious. Also having inter mittent hypotension. Physical Exam Physical Exam: Constitutional: Alert, obese, no distress HEENT: Mucous membranes moist. Lungs: Decreased breath sounds, crackles at bases CV: S1-S2, regular Abdomen: Soft, nontender, nondistended Extremities: Trace pretibial edema Neuro: No focal deficits, generalized weakness Psych: Confused Results & Data Results & Data Vital Signs (Past 12 Hours) Vital Signs Temp Pulse Pulse Resp BP BP Pulse Ox 05/19/24 11:34 36.5 C 95 H 20 87/50 L 93 05/19/24 08:26 93 H 05/19/24 07:45 36.9 C 103 H 20 112/69 92 05/19/24 07:32 05/19/24 03:03 36.6 C 90 18 88/49 L 92 05/19/24 01:15 104 H 18 92 05/19/24 00:29 26 H 05/19/24 00:10 36.8 C 107 H 22 112/73 94 O2 Del Method 05/19/24 11:34 Room Air 05/19/24 08:26 05/19/24 07:45 Room Air 05/19/24 07:32 Room Air 05/19/24 03:03 Room Air 05/19/24 01:15 Room Air 05/19/24 00:29 05/19/24 00:10 Room Air Diagnostic Findings Reviewed imaging, laboratory and diagnostic studies. Pertinent findings as below. WBCs 7.8 Hemoglobin 12.3 Potassium 5.2 Creatinine 1.3 Ultrasound lower extremity negative for DVT Personally reviewed chest x-ray, appears as somewhat decreased congestion
[2024-05-19] MEDS ORDERED: METOPROLOL SUCC 50MG EXT REL TAB PO SCH (21:00)
[2024-05-20] MEDS: MICONAZOLE NITRATE POWDER 85 GM EXT PRN (06:29)
[2024-05-20 07:08] LABS: BUN Creatinine Ratio 34.4 (10-20); Calcium 9.8 mg/dl (8.6-10.3); Creatinine Clr Calc Pharmacy 76.1 ml/min; Potassium 5.1 mmol/L (3.5-5.1)
[2024-05-20] MEDS: METOPROLOL SUCC 50MG EXT REL TAB PO SCH (08:08)
[2024-05-20] MEDS ORDERED: VALSARTAN 80 MG TAB PO SCH (09:00)
--- NOTE | 2024-05-20 12:42 | Cardiology Progress Note ---
Date of Service May 20, 2024 Assessment & Plan (1) Chest pain: (2) Elevated troponin: (3) Acute decompensated heart failure: (4) HTN, goal below 130/80: (5) Dyslipidemia, goal LDL below 70: Plan Nonischemic cardiomyopathy Cardiac catheterization on May 17, 2024 with mild nonobstructive coronary artery disease and severely elevated LVEDP (39 mmHg) NYHA Class III. LVEF 20-25% via May 15, 2024 resting echocardiogram Narrow QRS duration Maintaining sinus rhythm. Volume status: Normovolemic 3 cm infrarenal abdominal aortic aneurysm via imaging this admission which will require ongoing surveillance monitoring post discharge. Recommendations * GDMT, as tolerated * Patient fitted for a external defibrillator (Zoll) on 05/18/2024. * Outpatient follow-up with [employer] in [place] soon after discharge Cardiology is signing off. Please contact with any questions or concerns Admission and Anticipated Discharge Date Admission Date: May 14, 2024 Supervising Physician Co-Signing Physician Notes Attending attestation: Case reviewed with the advanced practitioner. I have personally performed a history and physical examination on the patient. I have reviewed the advanced practitioner's documentation on the date of service referenced in note, and I agree with, and take responsibility for the plan of care. Sinus tachycardia with a rate of 100-105 noted on telemetry. For now, reduce metoprolol succinate back to 50 mg p.o. daily to allow for slightly higher blood pressure. Patient stable from a cardiac perspective without chest discomfort and without orthopnea. Spironolactone and valsartan on hold due to hyperkalemia. Ongoing treatment/rehabilitation for musculoskeletal left leg pain recommended. Cardiology to sign off. Please call with any questions or concerns. Greg Barone, Subjective Patient seen and examined. Chart, medications, telemetry reviewed. Complaints: Left knee pain, left leg weakness. Unable to ambulate to the restroom. Kilpatrick catheter in place. No chest pain, shortness of breath, or palpitations. Furosemide, spironolactone, and valsartan are on hold. Metoprolol dosing decreased to 50 mg once per day by Hospitalist Service. Telemetry: Sinus/sinus tachycardia, heart rates predominantly 90s to 110 bpm. Review of Systems Review of Systems: Complete Review of Systems is as stated above, negative, or noncontributory Physical Exam Physical Exam: General: A&Ox3. NAD. Neck: No JVD. Heart: Regular at 100 bpm. Soft systolic murmur at the LLSB. Lungs: Clear Abdomen: +BS. No masses. Nontender. Extremities: Stasis changes. Minimal edema. Limited neurological examination is without focal deficits. Results & Data Vital Signs (Past 12 Hours) Vital Signs Temp Pulse Pulse Resp BP BP Pulse Ox 05/20/24 11:11 37.8 C H 98 H 16 116/75 94 05/20/24 07:29 36.7 C 101 H 18 130/81 93 05/20/24 07:27 05/20/24 07:04 105 H 05/20/24 03:47 37.1 C 90 16 99/53 L 97 05/20/24 00:52 104/67 O2 Del Method 05/20/24 11:11 Room Air 05/20/24 07:29 Room Air 05/20/24 07:27 Room Air 05/20/24 07:04 05/20/24 03:47 Room Air 05/20/24 00:52 Laboratory Results Comprehensive Metabolic Panel 05/20/24 Range/Units 05:19 Sodium 140 (136-145) mmol/L Potassium 5.1 (3.5-5.1) mmol/L Chloride 108 H (98-107) mmol/L Carbon Dioxide 21 (21-32) mmol/L BUN 44 H (6-23) mg/dl Creatinine 1.28 (0.6-1.4) mg/dl Glucose 164 H (70-99(Fasting)) mg/dl Calcium 9.8 (8.6-10.3) mg/dl Intake and Output 05/19/24 05/20/24 05/20/24 22:59 06:59 14:59 Intake Total 240 / 760 520 / 760 Output Total 380 / 530 150 / 530 Balance -140 / 230 370 / 230 Intake: Oral 240 / 760 520 / 760 Output: Urine 380 / 530 150 / 530 Other: # Unmeasured Voids 1 1 Weight 115.8 kg Weight Measurement Method Built in [facility]
--- NOTE | 2024-05-20 15:40 | Hospitalist Progress Note ---
Date of Service May 20, 2024 Assessment & Plan (1) Acute heart failure with reduced ejection fraction (HFrEF, <= 40%): (2) Demand ischemia: (3) UTI due to Klebsiella species: (4) Acute Lyme disease: (5) Nonischemic cardiomyopathy: (6) Non-occlusive coronary artery disease requiring drug therapy: (7) Alcoholic cirrhosis of liver: (8) Diabetes mellitus type 2, insulin dependent: (9) HTN, goal below 130/80: (10) Ambulatory dysfunction: (11) Left knee pain: (12) Acute hyperactive delirium due to another medical condition: Plan Patient feeling much better from a mental status perspective today. Suspected due to improved blood pressure. Restart low-dose Lasix tomorrow Titrate metoprolol up slightly tomorrow to 75 mg Patient did not do well with physical therapy, unable to ambulate or stand even significant amount of time to be able to travel back to his home state of [place]. Case management pursuing short-term rehab. Cardiology recommendations reviewed and noted, continue towards goal-directed medical therapy for his nonischemic cardiomyopathy Will complete course of Keflex for Klebsiella UTI tomorrow complete course of doxycycline for presumed Lyme 05/25/2024 Continue to encourage activity Admission and Anticipated Discharge Date Admission Date: May 14, 2024 Subjective Patient feeling better today. More interactive and alert. Physical Exam Physical Exam: Constitutional: Much more alert HEENT: Mucous membranes moist. Lungs: Decreased breath sounds, few crackles at bases CV: S1-S2, regular Abdomen: Soft, nontender, nondistended Extremities: Pretibial edema Neuro: No focal deficits, generalized weakness Psych: Cooperative, normal mood Results & Data Results & Data Vital Signs (Past 12 Hours) Vital Signs Temp Pulse Pulse Resp BP BP Pulse Ox 05/20/24 14:41 108 H 05/20/24 11:11 37.8 C H 98 H 16 116/75 94 05/20/24 07:29 36.7 C 101 H 18 130/81 93 05/20/24 07:27 05/20/24 07:04 105 H 05/20/24 03:47 37.1 C 90 16 99/53 L 97 O2 Del Method 05/20/24 14:41 05/20/24 11:11 Room Air 05/20/24 07:29 Room Air 05/20/24 07:27 Room Air 05/20/24 07:04 05/20/24 03:47 Room Air Diagnostic Findings Reviewed imaging, laboratory and diagnostic studies. Pertinent findings as below. Potassium 5.1 Creatinine 1.28 Glucose 164 Ultrasound lower extremity negative for DVT
[2024-05-21 07:02] LABS: Calcium 9.9 mg/dl (8.6-10.3); Potassium 4.8 mmol/L (3.5-5.1)
[2024-05-21 07:08] LABS: Creatinine Clr Calc Pharmacy 91.7 ml/min
--- NOTE | 2024-05-21 07:45 | Hospitalist Progress Note ---
Date of Service May 21, 2024 Assessment & Plan (1) Acute heart failure with reduced ejection fraction (HFrEF, <= 40%): (2) Demand ischemia: (3) UTI due to Klebsiella species: (4) Acute Lyme disease: (5) Nonischemic cardiomyopathy: (6) Non-occlusive coronary artery disease requiring drug therapy: (7) Alcoholic cirrhosis of liver: (8) Diabetes mellitus type 2, insulin dependent: (9) HTN, goal below 130/80: (10) Ambulatory dysfunction: (11) Left knee pain: (12) Acute hyperactive delirium due to another medical condition: Plan Mr. Ortega is a 63-year-old male with PMH HTN, DM II, alcoholic cirrhosis, psoriatic arthritis, RLS, history cervical fracture presented to ER with c/o CP, abdominal pain x 4 day on 05/14 and found to be in acute heart failure as well as with likely acute lyme and uti. Patient ultimately stabilized on GDMT Over 45 min spent convincing patient not to leaving AMA. Patient ultimately realized he cannot ambulate safely for a [place] trip. #Chest pain, nonischemic cardiomyopathy #Heart failure with reduced EF, 05/15 20-25% #Mild nonobstructive CAD multiple risk factors, s/p C 05/17 Continue aspirin, statin, evidence-based beta-darwin therapy, oral furosemide Continue spironolactone 12.5 mg only on , resuming on 05/21/2024 Continue Valsartan to 20 mg/day due to borderline blood pressures. start metoprolol succinate 50 mg BID per Card recommendations Patient fitted for a external defibrillator (Zoll) on 05/18/2024, continue Patient will need an appointment with his Senior Sustainability Consultant in [place] soon after discharge #Left knee pain #ambulatory dysfunction reports knee being "jerked" some anterior discomfort, no swelling noted if not better in am will order CT #Acute uncomplicated UTI completed course of Keflex #Positive lyme continue doxycycline 100mg bid 05/25/2024 #Alcoholic cirrhosis Last ETOH drink reported 3 years ago LFTs, PT INR WNL No ascites on exam or abdominal imaging #DM II Insulin dependent Hold home metformin and insulin Basal insulin, bolus insulin per sliding scale A1c 6.7% #Psoriatic arthritis #Chronic pain Not on medications #RLS Continue ropinirole DVT Prophylaxis Heparin SQ Admission and Anticipated Discharge Date Admission Date: May 14, 2024 Subjective NAEO Patient adamant this am about leaving AMA--discussed over 35 min at bedside how this was not ideal given inability for patient to lift self Patient verbalized understanding, still initially requesting to leave Ultimately, patient's cousin arrived and noted inability of patient to move independently and safely patient ultimately agree to stay outside of weakness, patient denies any chest pain, sob, palpitations or other concerns Physical Exam Constitutional: WD/WN, vitals as above Respiratory: normal respiratory effort, lungs clear to auscultation Cardiovascular: RRR, no murmur, no edema life vest in place Gastrointestinal (Abdomen): normal bowel sounds, soft, nontender, no hepatosplenomegaly Results & Data Results & Data Vital Signs (Past 12 Hours) Vital Signs Temp Pulse Pulse Resp BP Pulse Ox O2 Del Method 05/21/24 07:00 103 H 05/21/24 03:31 36.6 C 94 H 16 118/71 97 Room Air 05/20/24 23:30 36.9 C 102 H 18 133/73 95 Room Air 05/20/24 21:29 110 H Laboratory Results [facility] 05/21/24 05:39 Sodium 137 Potassium 4.8 Chloride 107 Carbon Dioxide 19 L BUN 36 H Creatinine 1.06 Glucose 188 H Calcium 9.9 Medications Administered Home Medications Medication Instructions Recorded Confirmed Last Taken aspirin 81 mg tablet,delayed 81 mg PO DAILY 05/14/24 05/14/24 05/13/24 release clonazepam 0.5 mg tablet 0.5 mg PO HS PRN Sleep 05/14/24 05/14/24 Unknown insulin degludec 200 unit/mL (3 30 unit subcut QAM 05/14/24 05/14/24 05/13/24 mL) subcutaneous pen (Tresiba FlexTouch U-200 insulin) lisinopril 40 mg tablet 40 mg PO DAILY 05/14/24 05/14/24 05/13/24 melatonin 5 mg tablet 5 mg PO HS PRN Sleep 05/14/24 05/14/24 Unknown metformin 1,000 mg tablet 1,000 mg PO BID 05/14/24 05/14/24 05/13/24 nortriptyline 50 mg capsule 150 mg PO HS 05/14/24 05/14/24 05/13/24 ropinirole 4 mg tablet 4 mg PO TID 05/14/24 05/14/24 05/13/24 rosuvastatin 5 mg tablet 5 mg PO PM 05/14/24 05/14/24 Unknown sildenafil 100 mg tablet 100 mg PO DAILY PRN Sexual 05/14/24 05/14/24 Unknown [place] cephalexin 500 mg capsule 500 mg PO QID 3 days #12 caps 05/18/24 Unknown doxycycline hyclate 100 mg capsule 100 mg PO BID 7 days #14 caps 05/18/24 Unknown furosemide 40 mg tablet 40 mg PO QAM 30 days #30 tabs 05/18/24 Unknown metoprolol succinate 25 mg 25 mg PO BID 30 days #60 tabs 05/18/24 Unknown tablet,extended release 24 hr spironolactone 25 mg tablet 12.5 mg (1/2 x 25 mg) PO DAILY 30 05/18/24 Unknown days #15 tabs valsartan 80 mg tablet (Diovan) 40 mg (1/2 x 80 mg) PO QAM 30 days 05/18/24 Unknown #15 tabs Active Medications Generic Name Dose Route Start Last Admin Trade Name Jadenq PRN Reason Stop Dose Admin Acetaminophen 1,000 mg 05/18/24 15:45 05/21/24 13:12 Acetaminophen 500 Mg Tab PO 06/17/24 15:44 1,000 mg Q8 HOLLY Administration Aspirin 81 mg 05/15/24 09:00 05/21/24 08:52 Aspirin 81 Mg Ectab PO 06/14/24 08:59 81 mg DAILY HOLLY Administration Doxycycline Hyclate 100 mg 05/15/24 21:00 05/21/24 08:53 Doxycycline Hyclate 100 Mg Cap PO 05/25/24 20:59 100 mg BID HOLLY Administration Furosemide 20 mg 05/21/24 09:00 05/21/24 08:53 Furosemide 20 Mg Tab PO 06/20/24 08:59 20 mg QAM HOLLY Administration Heparin Sodium (Porcine) 5,000 units 05/14/24 21:00 05/21/24 08:53 Heparin Sod 5,000 Unit/0.5 Ml Vial SQ 06/13/24 20:59 5,000 units Q12 HOLLY Administration Insulin Aspart 0 units 05/14/24 16:30 05/21/24 13:12 Insulin Aspart Per Unit Charge SC 06/13/24 16:29 4 units ACHS HOLLY Administration Insulin Glargine 5 units 05/17/24 09:00 05/21/24 09:42 Lantus Per Unit Charge SQ 06/16/24 08:59 5 units BID HOLLY Administration Magnesium Hydroxide 30 ml 05/14/24 17:32 05/16/24 21:17 Magnesium Hydroxide Susp 30 Ml Udc PO 06/13/24 17:31 30 ml Q12H PRN Administration Constipation Melatonin 6 mg 05/14/24 17:32 05/20/24 21:42 Melatonin 3 Mg Tab PO 06/13/24 17:31 6 mg HS PRN Administration Sleep Metoprolol Succinate 75 mg 05/21/24 09:00 05/21/24 08:52 Metoprolol Succ 25mg Ext Rel Tab PO 06/20/24 08:59 75 mg DAILY HOLLY Administration Miconazole Nitrate 1 appln 05/20/24 01:11 05/20/24 06:29 Miconazole Nitrate Powder 85 Gm EXT 06/19/24 01:10 1 appln PRN PRN Administration Affected Skin Folds Nortriptyline HCl 150 mg 05/14/24 21:00 05/20/24 21:44 Nortriptyline Hcl 25 Mg Cap PO 06/13/24 20:59 150 mg HS HOLLY Administration Oxycodone HCl 5 mg 05/18/24 15:36 05/21/24 06:02 Oxycodone Hcl Ir 5 Mg Tab (Immediate Release) PO 06/01/24 15:35 5 mg Q4H PRN Administration Pain Polyethylene Glycol 17 gm 05/14/24 17:32 05/16/24 09:13 Polyethylene (Miralax) 17 Gm Pack PO 06/13/24 17:31 17 gm DAILY PRN Administration Constipation Ropinirole HCl 4 mg 05/14/24 21:00 05/18/24 20:28 Ropinirole Hcl 2 Mg Tablet PO 06/13/24 20:59 4 mg TID HOLLY Administration Rosuvastatin Calcium 5 mg 05/14/24 21:00 05/20/24 21:45 Rosuvastatin Calcium 5 Mg Tab PO 06/13/24 20:59 5 mg PM HOLLY Administration Spironolactone 12.5 mg 05/21/24 09:00 05/21/24 08:52 Spironolactone 12.5 Mg Tab PO 06/20/24 08:59 12.5 mg MoWeFr@0900 HOLLY Administration
[2024-05-21] MEDS: METOPROLOL SUCC 25MG EXT REL TAB PO SCH (08:52)
[2024-05-21] MEDS: SPIRONOLACTONE 12.5 MG TAB PO SCH (08:52)
[2024-05-21] MEDS: FUROSEMIDE 20 MG TAB PO SCH (08:53)
[2024-05-21] MEDS: METOPROLOL SUCC 50MG EXT REL TAB PO SCH (21:55)
[2024-05-22 06:31] LABS: Hemoglobin 13.6 g/dl (14.0-18.0); Mean Corpuscular Hemoglobin 31.7 pg (25.0-34.0); Mean Corpuscular Hgb Conc 32.4 g/dL (32.0-36.0); Mean Corpuscular Volume 97.9 fL (80.0-100.0); Mean Platelet Volume 9.7 fL (9.4-12.4); Platelet Count 364 K/uL (130-400); RDW Coefficient of Variation 14.9 % (11.5-14.5); RDW Standard Deviation 54.5 fL (36.4-46.3); Red Blood Count 4.29 M/uL (4.70-6.10); White Blood Count 12.39 K/ul (4.8-10.8)
[2024-05-22 07:05] LABS: BUN Creatinine Ratio 33.9 (10-20); Calcium 10.1 mg/dl (8.6-10.3); Creatinine Clr Calc Pharmacy 83.4 ml/min; Potassium 4.7 mmol/L (3.5-5.1)
[2024-05-22 07:15] LABS: Magnesium 2.3 mg/dl (1.7-2.4)
--- NOTE | 2024-05-22 10:08 | CT Scan Report ---
CT knee LT wo con CLINICAL HISTORY: left knee pain, limited ambulation COMPARISON STUDY: No previous studies for comparison. TECHNIQUE: Axial images of the left knee were obtained without IV contrast. Sagittal and coronal queenie nstructions were viewed. Automated exposure control was utilized for the study. A dose lowering tech nique was utilized adhering to the principles of ALARA. FINDINGS: This exam is moderately compromised by motion artifact. No acute fractures are identified w ithin the left knee. No osseous lesion is identified. There is a moderate size joint effusion without lipohemarthrosis. Superior and inferior patellar spurring is present. There is mild to moderate join t space narrowing and osteophytosis within the left knee. IMPRESSION: 1. Exam compromised by motion artifact. No acute fractures identified. 2. Moderate-sized left knee joint effusion. 3. Mild to moderate left knee osteoarthritis. ACT 112: Negative or not required by law. Electronically signed by: Levi Gonzalez M.D. 05/22/2024 10:06 AM
[2024-05-22 11:48] LABS: C Reactive Protein 28.3 mg/dl (0-0.5)
--- NOTE | 2024-05-22 14:56 | Orthopedic Consultation ---
Date of Service May 22, 2024 Assessment & Plan (1) Effusion, left knee: I had a long discussion with the patient regarding his left knee pain. He states the left knee and hip pain has been happening for about 1 week. He does state in the past, he has had injections in his knee and other joints in his b [place], however he has had left knee pain for about a week. He does have an effusion on today's exam. He was diagnosed with a positive Lyme on 05/14/2024. On his exam, suspicion for an infected joint is low as there is no erythema about the knee and he has good range of motion with most of his pain at extension. This may be an effusion due to Lyme or OA. We did discuss treatment options at today's visit. I do not think that he is a candidate for steroid injection due to his glucose readings. We did discuss joint aspiration at today's visit. We discussed the risk, benefits and alternatives. Risks of having the aspiration include but are not limited to infection, bleeding, inability to obtain fluid, broken needle, persistent pain, etc. Benefits would be to have a therapeutic aspiration with pain reduction due to aspiration of the fluid. We could also analyze the fluid. Patient was interested in this option at today's visit. Informed consent was taken witnessed by the nurse. Please see separate procedure note for left knee aspiration. Fluid was sent for analysis. I do believe that he is from [place], therefore if this is an osteoarthritis flareup, he can follow-up with a local orthopedic for definitive management of this if needed and wanted. Please reach out to orthopedics with any other questions or concerns. He may continue to be WBAT and ROMAT. History of Present Illness Reason for Consultation: acute left knee pain Requesting Physician: . Attending Physician: Aileen Oropeza MD Deshawn is a 63-year-old male who is being consulted today for acute left knee pain. He states that his knee began to bother him about 1 week ago. He denies any injuries, trauma or eliciting events but states that specifically, it hurts with extension as well as weightbearing. He was consulted due to his significant left knee pain and especially his pain with weightbearing. He is admitted to the hospital due to cardiac reasons, specifically heart failure, as well as a UTI. He is resting comfortably at today's visit. To note, he does have a positive Lyme test on 05/14/2024. He denies any specific tick bites but states that he is in the [place] quite often. He is from [place]. He is here visiting as he was in for a family matter. He has plans to go home after his discharge from the hospital. At today's visit, he denies any fever, chills or constitutional symptoms. Does state that he had some steroids in his knees in the past but nothing recently. Also to note, he does have a positive urine culture for Klebsiella. Negative blood culture to growth after 5 days. His white count as of this morning was 12.39. He has an elevated ESR as well as a fasting glucose this morning of 190 and a [id number] glucose this afternoon is 220. He did have a CT this morning of the left knee. Allergies Allergy/AdvReac Type Severity Reaction Status Date / Time No Known Allergies Allergy Unverified 05/14/24 13:38 Home Medications Medication Instructions Recorded Confirmed Type aspirin 81 mg tablet,delayed 81 mg PO DAILY 05/14/24 05/14/24 History release clonazepam 0.5 mg tablet 0.5 mg PO HS PRN Sleep 05/14/24 05/14/24 History insulin degludec 200 unit/mL (3 30 unit subcut QAM 05/14/24 05/14/24 History mL) subcutaneous pen (Tresiba FlexTouch U-200 insulin) melatonin 5 mg tablet 5 mg PO HS PRN Sleep 05/14/24 05/14/24 History metformin 1,000 mg tablet 1,000 mg PO BID 05/14/24 05/14/24 History nortriptyline 50 mg capsule 150 mg PO HS 05/14/24 05/14/24 History ropinirole 4 mg tablet 4 mg PO TID 05/14/24 05/14/24 History rosuvastatin 5 mg tablet 5 mg PO PM 05/14/24 05/14/24 History sildenafil 100 mg tablet 100 mg PO DAILY PRN Sexual 05/14/24 05/14/24 History [place] cephalexin 500 mg capsule 500 mg PO QID 3 days #12 caps 05/18/24 Rx doxycycline hyclate 100 mg capsule 100 mg PO BID 7 days #14 caps 05/18/24 Rx furosemide 40 mg tablet 40 mg PO QAM 30 days #30 tabs 05/18/24 Rx metoprolol succinate 25 mg 25 mg PO BID 30 days #60 tabs 05/18/24 Rx tablet,extended release 24 hr spironolactone 25 mg tablet 12.5 mg (1/2 x 25 mg) PO DAILY 30 05/18/24 Rx days #15 tabs valsartan 80 mg tablet (Diovan) 40 mg (1/2 x 80 mg) PO QAM 30 days 05/18/24 Rx #15 tabs Past Med/Surg History Problem List (Updated 05/24/24 @ 17:06 by Josie Alford MD) Inflammatory arthritis Effusion, left knee Acute hyperactive delirium due to another medical condition Left knee pain Ambulatory dysfunction Non-occlusive coronary artery disease requiring drug therapy Nonischemic cardiomyopathy UTI due to Klebsiella species Diabetes mellitus type 2, insulin dependent Acute Lyme disease Demand ischemia Acute heart failure with reduced ejection fraction (HFrEF, <= 40%) Dyslipidemia, goal LDL below 70 HTN, goal below 130/80 Acute decompensated heart failure Psoriatic arthritis Diabetes mellitus, type II Anemia Alcoholic cirrhosis of liver Elevated troponin Elevated brain natriuretic peptide (BNP) level (Acute) Hypomagnesemia (Acute) Fever (Acute) Non-ST elevation VA (NSTEMI) (Acute) Abdominal pain (Acute) Chest pain (Acute) HTN (hypertension) (Chronic) RLS (restless legs syndrome) (Chronic) Diabetes (Chronic) Tachycardia (Chronic) Chronic pain (Chronic) Weakness (Acute) Surgical History History of esophagogastroduodenoscopy (EGD) History of colonoscopy H/O cervical spine surgery Family History Mother Hypertension Social History (Updated 05/15/24 @ 10:11 by Carson Silva) Smoking Status: Former smoker Tobacco Type: Cigarettes Hx Alcohol Use: Yes Hx Substance Use: No Communication Ability: Effective Beliefs That Will Affect Care: None Current Living Situation: Family Feels Safe at Home: Yes Assistive Devices: Cane and Walker Review of Systems All systems reviewed & are unremarkable except as noted in HPI & below. Physical Exam General: Alert and oriented. No acute distress. In regards to his left knee: He does have a joint effusion noted. No erythema, open wounds. He is able to perform active range of motion from near full extension to about 90 degrees flexion. It is not painful for him until he reaches full extension. In regards to tenderness, he is nontender about the knee except for some medial joint space tenderness. He is ligamentously stable. Neurovascular intact in the left lower extremity. Cardiovascular Vascularity grossly intact Musculoskeletal Please see above Psychiatric A+Ox3, euthymic affect Results & Data Results & Data Laboratory Results Laboratory Results - last 48 hr 05/20/24 05/20/24 05/21/24 17:09 20:15 05:39 WBC RBC Hgb Hct MCV MCH MCHC RDW Std Deviation RDW Coeff of Doni Plt Count MPV ESR Sodium 137 Potassium 4.8 Chloride 107 Carbon Dioxide 19 L Anion Gap 11 BUN 36 H Creatinine 1.06 Est Cr Clr Drug Dosing 91.7 eGFR 79.85 BUN/Creatinine Ratio 34.0 H Glucose 188 H POC Glucose 158 H 224 H Calcium 9.9 Magnesium Ammonia C-Reactive Protein 05/21/24 05/21/24 05/21/24 08:10 12:00 16:49 WBC RBC Hgb Hct MCV MCH MCHC RDW Std Deviation RDW Coeff of Doni Plt Count MPV ESR Sodium Potassium Chloride Carbon Dioxide Anion Gap BUN Creatinine Est Cr Clr Drug Dosing eGFR BUN/Creatinine Ratio Glucose POC Glucose 189 H 255 H 188 H Calcium Magnesium Ammonia C-Reactive Protein 05/21/24 05/22/24 05/22/24 20:05 05:24 05:25 WBC 12.39 H RBC 4.29 L Hgb 13.6 L Hct 42.0 MCV 97.9 MCH 31.7 MCHC 32.4 RDW Std Deviation 54.5 H RDW Coeff of Doni 14.9 H Plt Count 364 MPV 9.7 ESR > 130 H Sodium 138 Potassium 4.7 Chloride 106 Carbon Dioxide 21 Anion Gap 11 BUN 39 H Creatinine 1.15 Est Cr Clr Drug Dosing 83.4 eGFR 72.41 BUN/Creatinine Ratio 33.9 H Glucose 190 H POC Glucose 279 H Calcium 10.1 Magnesium 2.3 Ammonia 38.0 C-Reactive Protein 28.30 H 05/22/24 05/22/24 08:05 12:02 WBC RBC Hgb Hct MCV MCH MCHC RDW Std Deviation RDW Coeff of Doni Plt Count MPV ESR Sodium Potassium Chloride Carbon Dioxide Anion Gap BUN Creatinine Est Cr Clr Drug Dosing eGFR BUN/Creatinine Ratio Glucose POC Glucose 182 H 220 H Calcium Magnesium Ammonia C-Reactive Protein Diagnostic Findings I independently reviewed the below images. It is motion degraded. However, I do not see any acute bony abnormalities, fractures or dislocations. CT left knee on 05/22/24 IMPRESSION: 1. Exam compromised by motion artifact. No acute fractures identified. 2. Moderate-sized left knee joint effusion. 3. Mild to moderate left knee osteoarthritis. PG Care Time/CCT Total # of Minutes Spent Total Time Spent with Patient: Total time spent is greater than 50% in coordination of care (as documented) at patient's floor/unit and/or counseling patient: Supervising Physician Co-Signing Physician Notes Case reviewed. Chart, labs, and images reviewed. Agree with plan of care. Labs reviewed. WBC well below threshold for septic effusion. Gout crystalline arthropathy confirmed. Treat for gout. Followup with PCP. Coding Level of Care Code 84600 IN/OBS CONSULT LVL 4,60M Diagnoses Effusion, left knee M25.462
--- NOTE | 2024-05-22 15:42 | Hospitalist Progress Note ---
Date of Service May 22, 2024 Assessment & Plan (1) Acute heart failure with reduced ejection fraction (HFrEF, <= 40%): (2) Demand ischemia: (3) UTI due to Klebsiella species: (4) Acute Lyme disease: (5) Nonischemic cardiomyopathy: (6) Non-occlusive coronary artery disease requiring drug therapy: (7) Alcoholic cirrhosis of liver: (8) Diabetes mellitus type 2, insulin dependent: (9) HTN, goal below 130/80: (10) Ambulatory dysfunction: (11) Left knee pain: (12) Acute hyperactive delirium due to another medical condition: Plan Mr. Ortega is a 63-year-old male with PMH HTN, DM II, alcoholic cirrhosis, psoriatic arthritis, RLS, history cervical fracture presented to ER with c/o CP, abdominal pain x 4 day on 05/14 and found to be in acute heart failure as well as with likely acute lyme and uti. Patient ultimately stabilized on GDMT Over 45 min spent convincing patient not to leaving AMA. Patient ultimately realized he cannot ambulate safely for [place] trip. #Left knee effusion #Acute left knee pain #Osteoarthritis #Positive lyme given persistent pain and moderate left knee effusion, continued weakness, and new WBC will start IV CTX and CT LLE ordered Ortho consulted: aspiration performed follow up fluid analysis ESR > 130, CRP 28.30 ID Consult for concern of lyme joint effusion persistent pain despite 1 week po abx, suspect may need IV #Chest pain, nonischemic cardiomyopathy #Heart failure with reduced EF, 05/15 20-25% #Mild nonobstructive CAD multiple risk factors, s/p [facility] 05/17 Continue aspirin, statin, evidence-based beta-darwin therapy, oral furosemide Continue spironolactone 12.5 mg only on , resuming on 05/21/2024 Continue Valsartan to 20 mg/day due to borderline blood pressures. 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 Analyst in [place] soon after discharge #Acute uncomplicated UTI completed course of Keflex #Alcoholic cirrhosis Last ETOH drink reported 3 years ago LFTs, PT INR WNL No ascites on exam or abdominal imaging #DM II Insulin dependent Hold home metformin and insulin Basal insulin, bolus insulin per sliding scale A1c 6.7% #Psoriatic arthritis #Chronic pain Not on medications #RLS Continue ropinirole DVT Prophylaxis Heparin SQ Admission and Anticipated Discharge Date Admission Date: May 14, 2024 Subjective Reports bad day yesterday, disappointed about not being able to leave Reports sweats and just feeling "bad" but cannot explain knee still somewhat painful slouched in bed and weak appearing Physical Exam Constitutional: slouched, lethargic appearing Respiratory: normal respiratory effort, lungs clear to auscultation Cardiovascular: RRR SEM_+ Musculoskeletal: Left knee with tenderness along joint line and pain in posterior popliteal fossa, no visible swelling or erythema Results & Data Results & Data Vital Signs (Past 12 Hours) Vital Signs Temp Pulse Pulse Resp BP Pulse Ox O2 Del Method 05/22/24 15:07 37.2 C 99 H 16 132/67 93 Room Air 05/22/24 11:34 36.8 C 91 H 16 119/71 92 Room Air 05/22/24 09:00 Room Air 05/22/24 07:42 36.5 C 90 20 129/85 95 Room Air 05/22/24 07:00 98 H 05/22/24 03:48 36.5 C 91 H 16 103/65 96 Room Air Laboratory Results Short CBC 05/22/24 Range/Units 05:24 WBC 12.39 H (4.8-10.8) K/ul Hgb 13.6 L (14.0-18.0) g/dl Hct 42.0 (42.0-52.0) % Plt Count 364 (130-400) K/uL BMP 05/22/24 05:24 Sodium 138 Potassium 4.7 Chloride 106 Carbon Dioxide 21 BUN 39 H Creatinine 1.15 Glucose 190 H Calcium 10.[address] 05/22/24 08:12 CT knee LT wo con CLINICAL HISTORY: left knee pain, limited ambulation COMPARISON STUDY: No previous studies for comparison. TECHNIQUE: Axial images of the left knee were obtained without IV contrast. Sagittal and coronal reconstructions were viewed. Automated exposure control was utilized for the study. A dose lowering technique was utilized adhering to the principles of ALARA. FINDINGS: This exam is moderately compromised by motion artifact. No acute fractures are identified within the left knee. No osseous lesion is identified. There is a moderate size joint effusion without lipohemarthrosis. Superior and inferior patellar spurring is present. There is mild to moderate joint space narrowing and osteophytosis within the left knee. IMPRESSION: 1. Exam compromised by motion artifact. No acute fractures identified. 2. Moderate-sized left knee joint effusion. 3. Mild to moderate left knee osteoarthritis. ACT 112: Negative or not required by law. Electronically signed by: Levi Gonzalez M.D. 05/22/2024 10:06 AM Medications Administered Home Medications Medication Instructions Recorded Confirmed Last Taken aspirin 81 mg tablet,delayed 81 mg PO DAILY 05/14/24 05/14/24 05/13/24 release clonazepam 0.5 mg tablet 0.5 mg PO HS PRN Sleep 05/14/24 05/14/24 Unknown insulin degludec 200 unit/mL (3 30 unit subcut QAM 05/14/24 05/14/24 05/13/24 mL) subcutaneous pen (Tresiba FlexTouch U-200 insulin) lisinopril 40 mg tablet 40 mg PO DAILY 05/14/24 05/14/24 05/13/24 melatonin 5 mg tablet 5 mg PO HS PRN Sleep 05/14/24 05/14/24 Unknown metformin 1,000 mg tablet 1,000 mg PO BID 05/14/24 05/14/24 05/13/24 nortriptyline 50 mg capsule 150 mg PO HS 05/14/24 05/14/24 05/13/24 ropinirole 4 mg tablet 4 mg PO TID 05/14/24 05/14/24 05/13/24 rosuvastatin 5 mg tablet 5 mg PO PM 05/14/24 05/14/24 Unknown sildenafil 100 mg tablet 100 mg PO DAILY PRN Sexual 05/14/24 05/14/24 Unknown [place] cephalexin 500 mg capsule 500 mg PO QID 3 days #12 caps 05/18/24 Unknown doxycycline hyclate 100 mg capsule 100 mg PO BID 7 days #14 caps 05/18/24 Unknown furosemide 40 mg tablet 40 mg PO QAM 30 days #30 tabs 05/18/24 Unknown metoprolol succinate 25 mg 25 mg PO BID 30 days #60 tabs 05/18/24 Unknown tablet,extended release 24 hr spironolactone 25 mg tablet 12.5 mg (1/2 x 25 mg) PO DAILY 30 05/18/24 Unknown days #15 tabs valsartan 80 mg tablet (Diovan) 40 mg (1/2 x 80 mg) PO QAM 30 days 05/18/24 Unknown #15 tabs Active Medications Generic Name Dose Route Start Last Admin Trade Name Evin PRN Reason Stop Dose Admin Acetaminophen 1,000 mg 05/18/24 15:45 05/22/24 05:35 Acetaminophen 500 Mg Tab PO 06/17/24 15:44 1,000 mg Q8 HOLLY Administration Aspirin 81 mg 05/15/24 09:00 05/22/24 09:36 Aspirin 81 Mg Ectab PO 06/14/24 08:59 81 mg DAILY HOLLY Administration Furosemide 20 mg 05/21/24 09:00 05/22/24 09:36 Furosemide 20 Mg Tab PO 06/20/24 08:59 20 mg QAM HOLLY Administration Heparin Sodium (Porcine) 5,000 units 05/14/24 21:00 05/22/24 09:41 Heparin Sod 5,000 Unit/0.5 Ml Vial SQ 06/13/24 20:59 5,000 units Q12 HOLLY Administration Insulin Aspart 0 units 05/14/24 16:30 05/22/24 12:52 Insulin Aspart Per Unit Charge SC 06/13/24 16:29 12 units ACHS HOLLY Administration Insulin Glargine 5 units 05/17/24 09:00 05/22/24 09:40 Lantus Per Unit Charge SQ 06/16/24 08:59 5 units BID HOLLY Administration Magnesium Hydroxide 30 ml 05/14/24 17:32 05/16/24 21:17 Magnesium Hydroxide Susp 30 Ml Udc PO 06/13/24 17:31 30 ml Q12H PRN Administration Constipation Melatonin 6 mg 05/14/24 17:32 05/20/24 21:42 Melatonin 3 Mg Tab PO 06/13/24 17:31 6 mg HS PRN Administration Sleep Metoprolol Succinate 50 mg 05/21/24 21:00 05/22/24 09:36 Metoprolol Succ 50mg Ext Rel Tab PO 06/20/24 20:59 50 mg BID HOLLY Administration Miconazole Nitrate 1 appln 05/20/24 01:11 05/20/24 06:29 Miconazole Nitrate Powder 85 Gm EXT 06/19/24 01:10 1 appln PRN PRN Administration Affected Skin Folds Nortriptyline HCl 150 mg 05/14/24 21:00 05/21/24 21:55 Nortriptyline Hcl 25 Mg Cap PO 06/13/24 20:59 150 mg HS HOLLY Administration Oxycodone HCl 5 mg 05/18/24 15:36 05/22/24 09:37 Oxycodone Hcl Ir 5 Mg Tab (Immediate Release) PO 06/01/24 15:35 5 mg Q4H PRN Administration Pain Polyethylene Glycol 17 gm 05/14/24 17:32 05/16/24 09:13 Polyethylene (Miralax) 17 Gm Pack PO 06/13/24 17:31 17 gm DAILY PRN Administration Constipation Ropinirole HCl 4 mg 05/14/24 21:00 05/18/24 20:28 Ropinirole Hcl 2 Mg Tablet PO 06/13/24 20:59 4 mg TID HOLLY Administration Rosuvastatin Calcium 5 mg 05/14/24 21:00 05/21/24 21:54 Rosuvastatin Calcium 5 Mg Tab PO 06/13/24 20:59 5 mg PM HOLLY Administration Spironolactone 12.5 mg 05/21/24 09:00 05/21/24 08:52 Spironolactone 12.5 Mg Tab PO 06/20/24 08:59 12.5 mg MoWeFr@0900 HOLLY Administration
--- NOTE | 2024-05-22 15:45 | Procedure Note ---
Procedure Note Date of Service May 22, 2024 Left knee aspiration Procedure: After explanation of the procedure and medications and verification of allergies, informed consent was taken. The knee was sterilely prepped with a combination of alcohol and iodine sticks. 3 cc of 1% lidocaine were injected using a 22-gauge needle. After the lidocaine took effect, the area was reprepped. We used an 18-gauge needle for an aspiration. Patient tolerated procedure well the site was dressed with a Band-Aid. Minimal blood loss. Postinjection care was explained. 21 cc of yellow, cloudy fluid was aspirated from the left knee. Coding Additional Codes Date of Service ([facility].SURGERY)
[2024-05-22] MEDS: cefTRIAXone SODIUM 2,000 MG/50 ML BAG IV SCH (16:42)
[2024-05-22 17:10] LABS: Appearance Synovial Fluid Cloudy; Color Synovial Fluid Yellow; Mononuclear WBC Synovial 13.9 %; Polynuclear WBC Synovial 86.1 %; RBC Synovial Fluid Auto 20000 /uL; Source Synovial Fluid Left Knee; WBC Synovial Fluid Auto 8370 /ul (0-200)
[2024-05-22] MEDS: LIDOCAINE 2%/EPINEPHRINE 1:200,000 20 ML PF INFIL ONE (17:29)
[2024-05-22] MEDS: clonazePAM 0.5 MG TAB PO PRN (20:27)
[2024-05-23 07:35] LABS: Hematocrit (blood only) 40.2 % (42.0-52.0); Hemoglobin 12.8 g/dl (14.0-18.0); Mean Corpuscular Hemoglobin 31.3 pg (25.0-34.0); Mean Corpuscular Hgb Conc 31.8 g/dL (32.0-36.0); Mean Corpuscular Volume 98.3 fL (80.0-100.0); Mean Platelet Volume 9.6 fL (9.4-12.4); Platelet Count 317 K/uL (130-400); RDW Coefficient of Variation 15.1 % (11.5-14.5); RDW Standard Deviation 54.7 fL (36.4-46.3); Red Blood Count 4.09 M/uL (4.70-6.10); White Blood Count 9.84 K/ul (4.8-10.8)
[2024-05-23 07:51] LABS: BUN Creatinine Ratio 43.5 (10-20); Creatinine Clr Calc Pharmacy 88.8 ml/min; Potassium 4.7 mmol/L (3.5-5.1)
[2024-05-23] MEDS: LANTUS PER UNIT CHARGE SQ SCH (09:30)
--- NOTE | 2024-05-23 09:53 | Orthopedic Progress Note ---
Date of Service May 23, 2024 Assessment & Plan (1) Effusion, left knee: Patient is improving from the aspiration yesterday. Nothing more from an orthopedic standpoint at this time as his synovial fluid analysis is looking okay. Please reach out with any questions or concerns or if the fluid analysis becomes concerning. Marty Andrade is a 63-year-old male who had his left knee aspirated by me yesterday due to left knee pain and an effusion. At today's visit, he states he is feeling much better in the left knee. Has better range of motion with minimal pain. No other questions or concerns. Review of Systems All systems reviewed & are unremarkable except as noted in HPI & below. Physical Exam General: Alert and oriented. No acute distress. Left knee: Inspection unremarkable. Band-Aid was removed today. No erythema, edema, open wounds. He has good range of motion from 90 degrees flexion to near full extension. Does have some discomfort with extension but is improved from yesterday. Neurovascular intact. Results & Data Results & Data Laboratory Results Negative Gram stain left knee synovial fluid. Culture and sensitivity still pending. Crystals still pending. Synovial WBC 8370. Diagnostic Findings . PG Care Time/CCT Total # of Minutes Spent Total Time Spent with Patient: Total time spent is greater than 50% in coordination of care (as documented) at patient's floor/unit and/or counseling patient: Coding Level of Care Code 02297 SUB INP/OBS CARE 3/50MIN Diagnoses Effusion, left knee M25.462
--- NOTE | 2024-05-23 11:25 | Hospitalist Progress Note ---
Date of Service May 23, 2024 Assessment & Plan (1) Acute heart failure with reduced ejection fraction (HFrEF, <= 40%): (2) Demand ischemia: (3) UTI due to Klebsiella species: (4) Acute Lyme disease: (5) Nonischemic cardiomyopathy: (6) Non-occlusive coronary artery disease requiring drug therapy: (7) Alcoholic cirrhosis of liver: (8) Diabetes mellitus type 2, insulin dependent: (9) HTN, goal below 130/80: (10) Ambulatory dysfunction: (11) Left knee pain: (12) Acute hyperactive delirium due to another medical condition: Plan Mr. Ortega is a 63-year-old male with PMH HTN, DM II, alcoholic cirrhosis, psoriatic arthritis, RLS, history cervical fracture presented to ER with c/o CP, abdominal pain x 4 day on 05/14 and found to be in acute heart failure as well as with likely acute lyme and uti. Patient ultimately stabilized on GDMT Course complicated by acute knee pain--though chronic OA noted, patient was independent prior to admission and now immobile. CT revealed large effusion which was tapped 05/22 and cloudy. Ortho suspects likely lyme related effusion therefore PO doxy d/c and CTX IV started. ID consulted for abx duration/recommendations #Left knee effusion #Acute left knee pain #Osteoarthritis #Positive lyme given persistent pain and moderate left knee effusion, continued weakness, and new WBC will start IV CTX and CT LLE ordered Ortho consulted: aspiration performed, WBC synovial cloudy 86% PMN, 8370wbc follow up fluid analysis ESR > 130, CRP 28.30 ID Consult for concern of lyme joint effusion Started on IV CTX #Chest pain, nonischemic cardiomyopathy #Heart failure with reduced EF, 05/15 20-25% #Mild nonobstructive CAD multiple risk factors, s/p [facility] 05/17 Continue aspirin, statin, evidence-based beta-darwin therapy, oral furosemide Continue spironolactone 12.5 mg only on , resuming on 05/21/2024 Continue Valsartan to 20 mg/day due to borderline blood pressures. continue metoprolol succinate 50 mg BID per Card recommendations Patient fitted for a external defibrillator (Zoll) on 05/18/2024, continue Patient will need an appointment with his Manager [employer] in [place] soon after discharge #Acute uncomplicated UTI completed course of Keflex #Alcoholic cirrhosis Last ETOH drink reported 3 years ago LFTs, PT INR WNL No ascites on exam or abdominal imaging ammonia 05/22 wnl #DM II Insulin dependent Hold home metformin and insulin Basal insulin, bolus insulin per sliding scale A1c 6.7% #Psoriatic arthritis #Chronic pain Not on medications #RLS Continue ropinirole DVT Prophylaxis Heparin SQ Admission and Anticipated Discharge Date Admission Date: May 14, 2024 Physical Exam Constitutional: WD/WN, vitals as above Respiratory: normal respiratory effort, lungs clear to auscultation Cardiovascular: RRR, no murmur, no edema Gastrointestinal (Abdomen): normal bowel sounds, soft, nontender, no hepatosplenomegaly Results & Data Results & Data Vital Signs (Past 12 Hours) Vital Signs Temp Pulse Pulse Resp BP Pulse Ox O2 Del Method 05/23/24 11:04 36.5 C 82 16 116/72 95 Room Air 05/23/24 10:48 Room Air 05/23/24 07:34 36.7 C 59 L 20 114/67 91 Room Air 05/23/24 07:21 85 05/23/24 03:35 36.4 C L 79 16 110/70 94 Room Air 05/23/24 01:13 Room Air Laboratory Results Short CBC 05/23/24 Range/Units 07:09 WBC 9.84 (4.8-10.8) K/ul Hgb 12.8 L (14.0-18.0) g/dl Hct 40.2 L (42.0-52.0) % Plt Count 317 (130-400) K/uL BMP 05/23/24 07:09 Sodium 136 Potassium 4.7 Chloride 105 Carbon Dioxide 21 BUN 47 H Creatinine 1.08 Glucose 197 H Calcium 10.0 Medications Administered Home Medications Medication Instructions Recorded Confirmed Last Taken aspirin 81 mg tablet,delayed 81 mg PO DAILY 05/14/24 05/14/24 05/13/24 release clonazepam 0.5 mg tablet 0.5 mg PO HS PRN Sleep 05/14/24 05/14/24 Unknown insulin degludec 200 unit/mL (3 30 unit subcut QAM 05/14/24 05/14/24 05/13/24 mL) subcutaneous pen (Tresiba FlexTouch U-200 insulin) lisinopril 40 mg tablet 40 mg PO DAILY 05/14/24 05/14/24 05/13/24 melatonin 5 mg tablet 5 mg PO HS PRN Sleep 05/14/24 05/14/24 Unknown metformin 1,000 mg tablet 1,000 mg PO BID 05/14/24 05/14/24 05/13/24 nortriptyline 50 mg capsule 150 mg PO HS 05/14/24 05/14/24 05/13/24 ropinirole 4 mg tablet 4 mg PO TID 05/14/24 05/14/24 05/13/24 rosuvastatin 5 mg tablet 5 mg PO PM 05/14/24 05/14/24 Unknown sildenafil 100 mg tablet 100 mg PO DAILY PRN Sexual 05/14/24 05/14/24 Unknown [place] cephalexin 500 mg capsule 500 mg PO QID 3 days #12 caps 05/18/24 Unknown doxycycline hyclate 100 mg capsule 100 mg PO BID 7 days #14 caps 05/18/24 Unknown furosemide 40 mg tablet 40 mg PO QAM 30 days #30 tabs 05/18/24 Unknown metoprolol succinate 25 mg 25 mg PO BID 30 days #60 tabs 05/18/24 Unknown tablet,extended release 24 hr spironolactone 25 mg tablet 12.5 mg (1/2 x 25 mg) PO DAILY 30 05/18/24 Unknown days #15 tabs valsartan 80 mg tablet (Diovan) 40 mg (1/2 x 80 mg) PO QAM 30 days 05/18/24 Unknown #15 tabs Active Medications Generic Name Dose Route Start Last Admin Trade Name Freq PRN Reason Stop Dose Admin Acetaminophen 1,000 mg 05/18/24 15:45 05/23/24 13:53 Acetaminophen 500 Mg Tab PO 06/17/24 15:44 1,000 mg Q8 HOLLY Administration Aspirin 81 mg 05/15/24 09:00 05/23/24 09:23 Aspirin 81 Mg Ectab PO 06/14/24 08:59 81 mg DAILY HOLLY Administration Clonazepam 0.25 mg 05/18/24 07:10 05/22/24 20:27 Clonazepam 0.5 Mg Tab PO 06/13/24 19:50 0.25 mg HS PRN Administration Anxiety/Insomnia Furosemide 20 mg 05/21/24 09:00 05/23/24 09:23 Furosemide 20 Mg Tab PO 06/20/24 08:59 20 mg QAM HOLLY Administration Heparin Sodium (Porcine) 5,000 units 05/14/24 21:00 05/23/24 09:30 Heparin Sod 5,000 Unit/0.5 Ml Vial SQ 06/13/24 20:59 5,000 units Q12 HOLLY Administration Ceftriaxone Sodium 2,000 mg in 50 mls @ 100 mls/hr 05/22/24 16:00 05/22/24 17:12 Rocephin IV 06/01/24 15:59 Infused Q24H HOLLY Infusion Insulin Aspart 0 units 05/14/24 16:30 05/23/24 13:53 Insulin Aspart Per Unit Charge SC 06/13/24 16:29 9 units ACHS HOLLY Administration Insulin Glargine 10 units 05/23/24 09:00 05/23/24 09:30 Lantus Per Unit Charge SQ 06/22/24 08:59 10 units BID HOLLY Administration Magnesium Hydroxide 30 ml 05/14/24 17:32 05/23/24 10:40 Magnesium Hydroxide Susp 30 Ml Udc PO 06/13/24 17:31 30 ml Q12H PRN Administration Constipation Melatonin 6 mg 05/14/24 17:32 05/22/24 20:28 Melatonin 3 Mg Tab PO 06/13/24 17:31 6 mg HS PRN Administration Sleep Metoprolol Succinate 50 mg 05/21/24 21:00 05/23/24 09:23 Metoprolol Succ 50mg Ext Rel Tab PO 06/20/24 20:59 50 mg BID HOLLY Administration Miconazole Nitrate 1 appln 05/20/24 01:11 05/20/24 06:29 Miconazole Nitrate Powder 85 Gm EXT 06/19/24 01:10 1 appln PRN PRN Administration Affected Skin Folds Nortriptyline HCl 150 mg 05/14/24 21:00 05/22/24 20:27 Nortriptyline Hcl 25 Mg Cap PO 06/13/24 20:59 150 mg HS HOLLY Administration Oxycodone HCl 5 mg 05/18/24 15:36 05/23/24 12:26 Oxycodone Hcl Ir 5 Mg Tab (Immediate Release) PO 06/01/24 15:35 5 mg Q4H PRN Administration Pain Polyethylene Glycol 17 gm 05/14/24 17:32 05/16/24 09:13 Polyethylene (Miralax) 17 Gm Pack PO 06/13/24 17:31 17 gm DAILY PRN Administration Constipation Ropinirole HCl 4 mg 05/14/24 21:00 05/23/24 13:53 Ropinirole Hcl 2 Mg Tablet PO 06/13/24 20:59 4 mg TID HOLLY Administration Rosuvastatin Calcium 5 mg 05/14/24 21:00 05/22/24 20:26 Rosuvastatin Calcium 5 Mg Tab PO 06/13/24 20:59 5 mg PM HOLLY Administration Spironolactone 12.5 mg 05/21/24 09:00 05/21/24 08:52 Spironolactone 12.5 Mg Tab PO 06/20/24 08:59 12.5 mg MoWeFr@0900 HOLLY Administration
[2024-05-23] MEDS: OLANZapine 10 MG/2.1 ML SDV IM STA (23:57)
[2024-05-24 07:18] LABS: Hematocrit (blood only) 37.6 % (42.0-52.0); Hemoglobin 12.2 g/dl (14.0-18.0); Mean Corpuscular Hemoglobin 31.5 pg (25.0-34.0); Mean Corpuscular Hgb Conc 32.4 g/dL (32.0-36.0); Mean Corpuscular Volume 97.2 fL (80.0-100.0); Mean Platelet Volume 9.7 fL (9.4-12.4); Platelet Count 314 K/uL (130-400); RDW Coefficient of Variation 14.7 % (11.5-14.5); RDW Standard Deviation 53.2 fL (36.4-46.3); Red Blood Count 3.87 M/uL (4.70-6.10); White Blood Count 7.71 K/ul (4.8-10.8)
[2024-05-24 07:26] LABS: BUN Creatinine Ratio 46.4 (10-20); Calcium 10.2 mg/dl (8.6-10.3); Creatinine Clr Calc Pharmacy 114.7 ml/min; Potassium 4.4 mmol/L (3.5-5.1)
[2024-05-24 07:50] VITALS: RESP 20
[2024-05-24 12:14] VITALS: TEMP 97.7; O2SAT 93
--- NOTE | 2024-05-24 12:37 | Hospitalist Progress Note ---
Date of Service May 24, 2024 Assessment & Plan (1) Acute heart failure with reduced ejection fraction (HFrEF, <= 40%): (2) Demand ischemia: (3) UTI due to Klebsiella species: (4) Acute Lyme disease: (5) Nonischemic cardiomyopathy: (6) Non-occlusive coronary artery disease requiring drug therapy: (7) Alcoholic cirrhosis of liver: (8) Diabetes mellitus type 2, insulin dependent: (9) HTN, goal below 130/80: (10) Ambulatory dysfunction: (11) Left knee pain: (12) Acute hyperactive delirium due to another medical condition: Plan Mr. Ortega is a 63-year-old male with PMH HTN, DM II, alcoholic cirrhosis, psoriatic arthritis, RLS, history cervical fracture presented to ER with c/o CP, abdominal pain x 4 day on 05/14 and found to be in acute heart failure as well as with likely acute lyme and uti. Patient ultimately stabilized on GDMT Course complicated by acute knee pain--though chronic OA noted, patient was independent prior to admission and now immobile. CT revealed large effusion which was tapped 05/22 and cloudy. Ortho suspects likely lyme related effusion therefore PO doxy d/c and CTX IV started. ID consulted for abx duration/recommendations, pending recommendations #Left knee effusion #Acute left knee pain #Osteoarthritis #Positive lyme given persistent pain and moderate left knee effusion, continued weakness, and new WBC will start IV CTX and CT LLE ordered Ortho consulted: aspiration performed, WBC synovial cloudy 86% PMN, 8370wbc follow up fluid analysis ESR > 130, CRP 28.30 ID Consult for concern of lyme joint effusion continue IV CTX #Chest pain, nonischemic cardiomyopathy #Heart failure with reduced EF, 05/15 20-25% #Mild nonobstructive CAD multiple risk factors, s/p [facility] 05/17 Continue aspirin, statin, evidence-based beta-darwin therapy, oral furosemide Continue spironolactone 12.5 mg only on , resuming on 05/21/2024 Continue Valsartan to 20 mg/day due to borderline blood pressures. continue metoprolol succinate 50 mg BID per Card recommendations Patient fitted for a external defibrillator (Zoll) on 05/18/2024, continue Patient will need an appointment with his Regulatory And Compliance Technician in [place] soon after discharge #Acute uncomplicated UTI completed course of Keflex #Alcoholic cirrhosis Last ETOH drink reported 3 years ago LFTs, PT INR WNL No ascites on exam or abdominal imaging ammonia 05/22 wnl #DM II Insulin dependent Hold home metformin and insulin Basal insulin, bolus insulin per sliding scale A1c 6.7% #Psoriatic arthritis #Chronic pain Not on medications #RLS Continue ropinirole DVT Prophylaxis Heparin SQ Discharge contingent on ID recommendations Patient adamant to leave here, however, immobile. Patient does have decision making capacity Admission and Anticipated Discharge Date Admission Date: May 14, 2024 Subjective agitated overnight, delirium in evenings Reports upset about feeling trapped and wants to go home States pain in leg is improving and eager to try PT again Physical Exam Constitutional: WD/WN, vitals as above Respiratory: normal respiratory effort, lungs clear to auscultation Cardiovascular: RRR, no murmur, no edema Musculoskeletal: LLE with improved ROM Results & Data Results & Data Vital Signs (Past 12 Hours) Vital Signs Temp Pulse Resp BP Pulse Ox O2 Del Method 05/24/24 12:14 36.5 C 90 20 124/80 93 Room Air 05/24/24 08:00 Room Air 05/24/24 07:49 36.8 C 97 H 20 110/70 94 Room Air Laboratory Results Short CBC 05/24/24 Range/Units 06:13 WBC 7.71 (4.8-10.8) K/ul Hgb 12.2 L (14.0-18.0) g/dl Hct 37.6 L (42.0-52.0) % Plt Count 314 (130-400) K/uL BMP 05/24/24 06:13 Sodium 136 Potassium 4.4 Chloride 105 Carbon Dioxide 22 BUN 39 H Creatinine 0.84 Glucose 188 H Calcium 10.2 Medications Administered Home Medications Medication Instructions Recorded Confirmed Last Taken aspirin 81 mg tablet,delayed 81 mg PO DAILY 05/14/24 05/14/24 05/13/24 release clonazepam 0.5 mg tablet 0.5 mg PO HS PRN Sleep 05/14/24 05/14/24 Unknown insulin degludec 200 unit/mL (3 30 unit subcut QAM 05/14/24 05/14/24 05/13/24 mL) subcutaneous pen (Tresiba FlexTouch U-200 insulin) lisinopril 40 mg tablet 40 mg PO DAILY 05/14/24 05/14/24 05/13/24 melatonin 5 mg tablet 5 mg PO HS PRN Sleep 05/14/24 05/14/24 Unknown metformin 1,000 mg tablet 1,000 mg PO BID 05/14/24 05/14/24 05/13/24 nortriptyline 50 mg capsule 150 mg PO HS 05/14/24 05/14/24 05/13/24 ropinirole 4 mg tablet 4 mg PO TID 05/14/24 05/14/24 05/13/24 rosuvastatin 5 mg tablet 5 mg PO PM 05/14/24 05/14/24 Unknown sildenafil 100 mg tablet 100 mg PO DAILY PRN Sexual 05/14/24 05/14/24 Unknown [place] cephalexin 500 mg capsule 500 mg PO QID 3 days #12 caps 05/18/24 Unknown doxycycline hyclate 100 mg capsule 100 mg PO BID 7 days #14 caps 05/18/24 Unknown furosemide 40 mg tablet 40 mg PO QAM 30 days #30 tabs 05/18/24 Unknown metoprolol succinate 25 mg 25 mg PO BID 30 days #60 tabs 05/18/24 Unknown tablet,extended release 24 hr spironolactone 25 mg tablet 12.5 mg (1/2 x 25 mg) PO DAILY 30 05/18/24 Unknown days #15 tabs valsartan 80 mg tablet (Diovan) 40 mg (1/2 x 80 mg) PO QAM 30 days 05/18/24 Unknown #15 tabs Active Medications Generic Name Dose Route Start Last Admin Trade Name Freq PRN Reason Stop Dose Admin Acetaminophen 1,000 mg 05/18/24 15:45 05/24/24 05:00 Acetaminophen 500 Mg Tab PO 06/17/24 15:44 1,000 mg Q8 HOLLY Administration Aspirin 81 mg 05/15/24 09:00 05/24/24 08:52 Aspirin 81 Mg Ectab PO 06/14/24 08:59 81 mg DAILY HOLLY Administration Clonazepam 0.25 mg 05/18/24 07:10 05/23/24 23:28 Clonazepam 0.5 Mg Tab PO 06/13/24 19:50 0.25 mg HS PRN Administration Anxiety/Insomnia Furosemide 20 mg 05/21/24 09:00 05/24/24 08:52 Furosemide 20 Mg Tab PO 06/20/24 08:59 20 mg QAM HOLLY Administration Heparin Sodium (Porcine) 5,000 units 05/14/24 21:00 05/24/24 08:59 Heparin Sod 5,000 Unit/0.5 Ml Vial SQ 06/13/24 20:59 Not Given Q12 HOLLY Ceftriaxone Sodium 2,000 mg in 50 mls @ 100 mls/hr 05/22/24 16:00 05/23/24 16:24 Rocephin IV 06/01/24 15:59 Infused Q24H HOLLY Infusion Insulin Aspart 0 units 05/14/24 16:30 05/24/24 08:54 Insulin Aspart Per Unit Charge SC 06/13/24 16:29 7 units ACHS HOLLY Administration Insulin Glargine 10 units 05/23/24 09:00 05/24/24 08:59 Lantus Per Unit Charge SQ 06/22/24 08:59 10 units BID HOLLY Administration Magnesium Hydroxide 30 ml 05/14/24 17:32 05/23/24 10:40 Magnesium Hydroxide Susp 30 Ml Udc PO 06/13/24 17:31 30 ml Q12H PRN Administration Constipation Melatonin 6 mg 05/14/24 17:32 05/22/24 20:28 Melatonin 3 Mg Tab PO 06/13/24 17:31 6 mg HS PRN Administration Sleep Metoprolol Succinate 50 mg 05/21/24 21:00 05/24/24 08:52 Metoprolol Succ 50mg Ext Rel Tab PO 06/20/24 20:59 50 mg BID HOLLY Administration Miconazole Nitrate 1 appln 05/20/24 01:11 05/20/24 06:29 Miconazole Nitrate Powder 85 Gm EXT 06/19/24 01:10 1 appln PRN PRN Administration Affected Skin Folds Nortriptyline HCl 150 mg 05/14/24 21:00 05/23/24 21:13 Nortriptyline Hcl 25 Mg Cap PO 06/13/24 20:59 150 mg HS HOLLY Administration Oxycodone HCl 5 mg 05/18/24 15:36 05/24/24 09:00 Oxycodone Hcl Ir 5 Mg Tab (Immediate Release) PO 06/01/24 15:35 5 mg Q4H PRN Administration Pain Polyethylene Glycol 17 gm 05/14/24 17:32 05/16/24 09:13 Polyethylene (Miralax) 17 Gm Pack PO 06/13/24 17:31 17 gm DAILY PRN Administration Constipation Ropinirole HCl 4 mg 05/14/24 21:00 05/24/24 08:52 Ropinirole Hcl 2 Mg Tablet PO 06/13/24 20:59 4 mg TID HOLLY Administration Rosuvastatin Calcium 5 mg 05/14/24 21:00 05/23/24 21:15 Rosuvastatin Calcium 5 Mg Tab PO 06/13/24 20:59 5 mg PM HOLLY Administration Spironolactone 12.5 mg 05/21/24 09:00 05/21/24 08:52 Spironolactone 12.5 Mg Tab PO 06/20/24 08:59 12.5 mg MoWeFr@0900 HOLLY Administration
[2024-05-24 17:05] VITALS: BP 107/68; PULSE 90
--- NOTE | 2024-05-24 17:06 | Infectious Disease Consult ---
Date of Service May 24, 2024 Telehealth Information I performed this visit using a real-time telehealth connection between my location and the patients location ([facility]). After connecting through interactive tele-video, patient was identified by name and date of and/or wristband check.Patient (or authorized healthcare guest services representative) was informed that this was a telemedicine visit and it was being conducted confidentially over secure lines. My office door was closed and no one else was present in the room with me.Patient (or authorized healthcare guest services representative) provided consent to proceed with the visit, expressed an understanding of privacy and security of the telemedicine visit, and gave permission to have a hospital guest services representative in the room in order to assist with the visit and to conduct portions of the visit, as needed. I informed the patient (or authorized healthcare guest services representative) that I reviewed their record and presented the opportunity for them to ask any questions regarding the visit today. The patient agreed to participate. Assessment & Plan (1) Inflammatory arthritis: (2) Acute decompensated heart failure: (3) Nonischemic cardiomyopathy: Plan My concern for pyogenic septic arthritis is low. Based on the synovial fluid analysis, patient has inflammatory arthritis likely secondary to gout. Therefore, I would recommend stopping IV ceftriaxone and monitoring off of antibiotic at this point. I will continue to follow up on the synovial fluid culture over the next day and if remained negative, there would be no further need for antibiotics. History of Present Illness History of Present Illness Mr. Ortega is a 63-year-old man with medical history of HTN, type 2 diabetes, alcoholic cirrhosis, psoriatic arthritis, restless leg syndrome and history of cervical fracture status post fusion who was admitted to [facility] on 05/14 because of chest pain and abdominal pain. On presentation, he was found to have elevated troponin with acute decompensated heart failure (left ventricular ejection fraction 20-25%). He eventually underwent angiography whic h demonstrated nonobstructive cardiomyopathy. ID team is consulted because of concerns for Lyme arthritis. When obtaining history from patient today, he mentioned that around 5 days prior to presentation, he fell down at home and landed on his left knee which resulted in swelling and pain. While in the hospital, the swelling and the pain has gotten progressively worse and a CT of the knee was obtained which showed moderate size left knee joint effusion. He had a Lyme screen test performed on presentation which came back positive with confirmatory IgG positive/IgM negative. At that time, he was started on oral doxycycline. He eventually underwent arthrocentesis on 05/22 which showed around 8370 WBCs (86% PMNs) with many monosodium urate crystals. Because of concerns for septic arthritis,, doxycycline was discontinued and IV ceftriaxone was started. ID team was consulted for further recommendations and to help guide antibiotic treatment. Allergies Allergy/AdvReac Type Severity Reaction Status Date / Time No Known Allergies Allergy Unverified 05/14/24 13:38 Home Medications Medication Instructions Recorded Confirmed Type aspirin 81 mg tablet,delayed 81 mg PO DAILY 05/14/24 05/14/24 History release clonazepam 0.5 mg tablet 0.5 mg PO HS PRN Sleep 05/14/24 05/14/24 History insulin degludec 200 unit/mL (3 30 unit subcut QAM 05/14/24 05/14/24 History mL) subcutaneous pen (Tresiba FlexTouch U-200 insulin) melatonin 5 mg tablet 5 mg PO HS PRN Sleep 05/14/24 05/14/24 History metformin 1,000 mg tablet 1,000 mg PO BID 05/14/24 05/14/24 History nortriptyline 50 mg capsule 150 mg PO HS 05/14/24 05/14/24 History ropinirole 4 mg tablet 4 mg PO TID 05/14/24 05/14/24 History rosuvastatin 5 mg tablet 5 mg PO PM 05/14/24 05/14/24 History sildenafil 100 mg tablet 100 mg PO DAILY PRN Sexual 05/14/24 05/14/24 History [place] cephalexin 500 mg capsule 500 mg PO QID 3 days #12 caps 05/18/24 Rx doxycycline hyclate 100 mg capsule 100 mg PO BID 7 days #14 caps 05/18/24 Rx furosemide 40 mg tablet 40 mg PO QAM 30 days #30 tabs 05/18/24 Rx metoprolol succinate 25 mg 25 mg PO BID 30 days #60 tabs 05/18/24 Rx tablet,extended release 24 hr spironolactone 25 mg tablet 12.5 mg (1/2 x 25 mg) PO DAILY 30 05/18/24 Rx days #15 tabs valsartan 80 mg tablet (Diovan) 40 mg (1/2 x 80 mg) PO QAM 30 days 05/18/24 Rx #15 tabs Patient History Surgical History History of esophagogastroduodenoscopy (EGD) History of colonoscopy H/O cervical spine surgery Family History Mother Hypertension Social History (Updated 05/15/24 @ 10:11 by Carson Silva) Smoking Status: Former smoker Tobacco Type: Cigarettes Hx Alcohol Use: Yes Hx Substance Use: No Communication Ability: Effective Beliefs That Will Affect Care: None Current Living Situation: Family Feels Safe at Home: Yes Assistive Devices: Cane and Walker Review of Systems Negative except for what was mentioned in the H&P Physical Exam Could not be performed as the visit was conducted via TeleMed Results & Data Vital Signs (Past 12 Hours) Vital Signs Temp Pulse Pulse Resp BP Pulse Ox O2 Del Method 05/24/24 14:38 91 H 05/24/24 12:14 36.5 C 90 20 124/80 93 Room Air 05/24/24 08:00 Room Air 05/24/24 07:49 36.8 C 97 H 20 110/70 94 Room Air Laboratory Results Microbiology: 05/14: 2 sets of blood culture negative 05/15: Urine culture growing Klebsiella pneumoniae 05/22: Synovial fluid culture negative to date
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
== END 2024-05-24 17:01 | disposition left against medical advice (07) | DRG 286 ==
LOC: ED 12:02 → SUATTDRO 15:16 → 2N 15:16 → 2S 05-17 08:54 → 2N 05-18 21:09